=== PATIENT | female | born 1995 | race Caucasian/White ===

== ENCOUNTER 2017-11-22 10:47 | Emergency (ER) | payer OTHER, SELFPAY ==
[2017-11-22 10:53] VITALS: BP 127/66; PULSE 114; RESP 26; TEMP 36.5; O2SAT 100; BMI 29.2
--- NOTE | 2017-11-22 10:56 | ED_ITS ---
HPI - Anxiety General Chief Complaint: Anxiety Stated Complaint: thinks allergic reaction to medicine Time Seen by Provider: 11/22/17 10:48 Source: patient Mode of arrival: ambulatory Limitations: no limitations History of Present Illness HPI narrative: 22-year-old female with a history of anxiety who earlier this week started trazodone for sleep in Celexa for her anxiety prescribed by her primary doctor here for which she thought was a reaction to the medicine/panic attack. Patient states that she has taken the medicine since Saturday. Her last dose of Celexa was 24 hr ago. Her last dose of the trazodone was last night. She states that this morning she woke up was not feeling well. States she threw up. After that her anxiety spike. She states that nausea and abdominal ? issues ?are how her anxiety presents itself. She arrived to the emergency department in a full-blown panic attack. Related Data Home Medications Medication Instructions Recorded Confirmed citalopram 10 mg PO DAILY 11/22/17 11/22/17 trazodone 25 - 50 mg PO BEDTIME PRN 11/22/17 11/22/17 Previous Rx's Medication Instructions Recorded lorazepam [Ativan] 1 mg PO Q8H PRN #10 tab 11/22/17 ondansetron [Zofran ODT] 4 mg PO Q6H PRN #10 tab 11/22/17 Allergies Allergy/AdvReac Type Severity Reaction Status Date / Time No Known Allergies Allergy Uncoded 09/11/17 12:46 Review of Systems Constitutional Denies fatigue and Denies fever(s) Cardiovascular Denies chest pain, Reports rapid heart rate, Denies palpitations and Reports dyspnea Respiratory Reports dyspnea Gastrointestinal Gastrointestinal: Reports nausea and Reports vomiting Integumentary/Breasts Denies lesions and Denies rash Neurologic Denies confusion Psychiatric Reports anxiety, Denies confusion and Reports panic attacks Endocrine Denies fatigue and Denies palpitations Exam Initial Vital Signs Initial Vital Signs: Vital Signs Temperature 97.7 F 11/22/17 10:53 Pulse Rate 114 H 11/22/17 10:53 Respiratory Rate 26 H 11/22/17 10:53 Blood Pressure 127/66 H 11/22/17 10:53 Pulse Oximetry 100 11/22/17 10:53 HENMT Head: normal to inspection, normocephalic and atraumatic Resp Auscultation: clear to auscultation bilaterally Other: Tachypneic on arrival which improved after the Ativan Cardio Rate: tachycardic (Tachycardic upon arrival) Pulses: radial pulses present GI Inspection: non-distended Palpation: soft Skin Lesions: no lesions Rashes: no rashes Neuro General: alert, awake and oriented x3 Psych Appearance: grossly normal and well kempt Other: Anxious, tachypneic, tachycardic. Course Orders Ordered: Discontinued Medications Lorazepam (Ativan) 1 mg PO NOW ONE Stop: 11/22/17 10:56 Last Admin: 11/22/17 11:06 Dose: Lorazepam (Ativan) 1 mg PO NOW ONE Stop: 11/22/17 11:00 Last Admin: 11/22/17 11:00 Dose: 1 mg Vital Signs - 8 hr 11/22/17 10:53 11/22/17 12:01 11/22/17 12:10 Temperature 97.7 F Pulse Rate 114 H 88 96 H Respiratory Rate 26 H 18 Blood Pressure 127/66 H Blood Pressure [Right Arm] 110/50 L 116/72 Pulse Oximetry 100 99 99 11/22/17 12:34 Temperature Pulse Rate 87 Respiratory Rate 16 Blood Pressure Blood Pressure [Right Arm] 105/72 Pulse Oximetry 95 MDM - Anxiety MDM Narrative Medical decision making narrative: Patient arrived to the emergency department with an obvious panic attack. Was given 1 mg of oral Ativan which improved her symptoms somewhat. After spending more time here in the emergency department her symptoms almost completely resolved. While she was improving I did offer more oral Ativan and also nausea medication which she declined. We had a long discussion regarding her medicines. She has already talked with her primary doctor regarding it. She is going to stop the trazodone and skip her Celexa today and start at a half dose again tomorrow. She has a follow-up with her primary doctor in 3 weeks to discuss further treatment. She was given return precautions. Her mother was at bedside. They both expressed understanding and agreement with plan Discharge Plan Departure Patient Disposition: Home, Self-Care Clinical Impression: Acute anxiety Instructions: Anxiety Disorders, Anxiety and Panic Attacks (Alternative Therapy ) Activity Restrictions/Additional Instructions: Recommend that you take your primary care doctor's advice regarding your medicines. Return to the emergency department for any new or worsening symptoms. Keep all scheduled medical appointments. Prescriptions: New lorazepam [Ativan] 1 mg tablet 1 mg PO Q8H PRN (Reason: anxiety) Qty: 10 RF: 0 ondansetron [Zofran ODT] 4 mg tablet,disintegrating 4 mg PO Q6H PRN (Reason: nausea and vomiting) Qty: 10 RF: 0 No Action trazodone 50 mg Tablet 25 - 50 mg PO BEDTIME PRN (Reason: Sleep) RF: 0 citalopram 10 mg Tablet 10 mg PO DAILY RF: 0
[2017-11-22] MEDS: LORazepam 0.5 MG TABLET 1 MG PO (11:00)
--- NOTE | 2017-11-22 11:10 | PC.NURSE ---
Patient comes in tachypneic reporting she started a new medication for anxiety yesterday and today is afraid she may be having an allergic reaction and a panic attack. She reports her throat is sore and feels swollen. Voice is not hoarse, SPO2 is 100%. LANM at bedside assessing patient. Verbal order for 1mg ativan given. I gave her a plastic bag to breathe in to help slow her breathing as she is hyperventilating and stats she cannot slow her breathing.
--- NOTE | 2017-11-22 11:12 | PC.NURSE ---
Lights dimmed in room, mom at bedside. I draped her shoulders in a warm blanket, silenced the monitor, and shut the door to minimize stimulation. I told the mom to inform me if something changes. Patient appears to be calming down.
--- NOTE | 2017-11-22 11:21 | PC.NURSE ---
Patient sitting on edge of bed, focusing on slowing breathing. She was given water per request from [facility]. [facility] reports that there is no throat swelling per his observation.
[2017-11-22 12:01] VITALS: BP 110/50; PULSE 88; O2SAT 99
--- NOTE | 2017-11-22 12:09 | PC.NURSE ---
Patient lying back in bed, breathing has slowed and patient reports she feels a lot better, I'm ready to go. States throat still feels a little sore/tight but overall she feels much better.vital signs stable. MERON aware.
[2017-11-22 12:10] VITALS: BP 116/72; PULSE 96; RESP 18; O2SAT 99
[2017-11-22 12:34] VITALS: BP 105/72; PULSE 87; RESP 16; O2SAT 95
[2017-11-22 12:51] VITALS: BP 105/72; PULSE 87; RESP 16; O2SAT 98
== END 2017-11-22 12:52 | disposition home or self-care (01) ==
PROVIDERS: Emergency Provider Emergency Medicine
DX: F41.9 Anxiety disorder, unspecified (principal)
CPT/HCPCS: 99283

== ENCOUNTER 2019-02-13 18:10 | Inpatient (IN) | payer OTHER, SELFPAY ==
[2019-02-13 18:42] VITALS: BP 140/84; PULSE 81; RESP 16; TEMP 38.9; O2SAT 100
[2019-02-13 18:56] VITALS: BP 140/84; PULSE 81; RESP 16; TEMP 38.9; O2SAT 100; BMI 29.2
[2019-02-13 19:17] LABS: Add Manual Diff / Slide Review NO; Basophils Absolute Auto 100 /uL (0-100); Basophils Percent Auto 0.4 % (0-2); Eosinophils Absolute Auto 0 /uL (0-450); Hematocrit 45.3 % (36-46); Hemoglobin 15.8 g/dL (12.0-16.0); Lymphocytes Absolute Auto 1800 /uL (1100-4500); Lymphocytes Percent Auto 13.5 % (25-40); Mean Corpuscular HGB Conc 34.8 % (30-36); Mean Corpuscular Hemoglobin 31.9 PG (26-34); Mean Corpuscular Volume 91.8 fL (80-100); Monocytes Absolute Auto 800 /uL (0-900); Neutrophils Absolute Auto 10700 /uL (1500-7000); Neutrophils Percent Auto 80.1 % (50-75); Platelet Count 263 X10^3/uL (150-400); Red Blood Cell Count 4.94 X10^6/uL (4.0-5.2); Red Cell Distribution Width 12.6 % (11.6-14.8); White Blood Cell Count 13.4 X10^3/uL (4.5-11.0)
[2019-02-13 19:21] LABS: INR 1.1 (0.9-1.3); Prothrombin Time 12.6 SECONDS (10.1-12.7)
[2019-02-13 19:24] LABS: PTT Partial Thromboplastin Tim 34 SECONDS (26.4-36.2)
[2019-02-13 19:26] LABS: Alanine Aminotransferase 53 IU/L (9-52); Albumin Globulin Ratio 1.3 (1.0-2.8); Alkaline Phosphatase 87 U/L (38-126); Aspartate Aminotransferase 43 IU/L (14-36); BUN Creatinine Ratio 11.4 (6-22); Bilirubin Total 0.6 mg/dL (0.2-1.3); Blood Urea Nitrogen 8 mg/dL (7-17); Calcium 10.1 mg/dL (8.4-10.2); Carbon Dioxide 19 mmol/L (22-32); Chloride 103 mmol/L (98-107); Estimated Glomerular Filt Rate > 60.0 mL/min (>60); Globulin 3.9 g/dL (1.7-4.1); Glucose 158 mg/dL (70-100); HEMOLYSIS < 15 (0-50); Lipase 47 U/L (23-300); Potassium 3.6 mmol/L (3.4-5.1); Sodium 140 mmol/L (137-145); Total Protein 8.9 g/dL (6.3-8.2)
[2019-02-13] MEDS: PROCHLORPERAZINE 10 MG/2 ML VIAL IV (19:27)
[2019-02-13] MEDS: diphenhydrAMINE 50 MG/ML VIAL 25 MG IV (19:27)
[2019-02-13] MEDS: KETOROLAC 60 MG/2 ML VIAL 30 MG IV (19:27)
--- NOTE | 2019-02-13 19:27 | ED_ITS ---
HPI - Nausea/Vomiting/Diarrhea General Chief complaint: Nausea/Vomiting/Diarrhea Stated complaint: DIZZY BAD HEADACHE THROWING UP NON STOP NEEDS ANTI Time Seen by Provider: 02/13/19 19:01 Source: patient Mode of arrival: ambulatory Limitations: no limitations History of Present Illness HPI Narrative: 23-year-old female here for evaluation of nausea and vomiting abdominal pain and headache and fever. Patient was seen today at an outside clinic and was diagnosed with Trichomonas. Was given a prescription for Flagyl but has been able to take any these medications. She states that they did not do a pelvic exam. She arrives the Emergency Department today feeling very ill with the above symptoms. No neck pain. Related Data Home Medications Medication Instructions Recorded Confirmed citalopram 10 mg PO DAILY 11/22/17 11/22/17 trazodone 25 - 50 mg PO BEDTIME PRN 11/22/17 11/22/17 Previous Rx's Medication Instructions Recorded lorazepam [Ativan] 1 mg PO Q8H PRN #10 tab 11/22/17 ondansetron [Zofran ODT] 4 mg PO Q6H PRN #10 tab 11/22/17 Allergies Allergy/AdvReac Type Severity Reaction Status Date / Time No Known Allergies Allergy Uncoded 09/11/17 12:46 Review of Systems Constitutional Constitutional: Reports body ache(s), Reports chills, Reports fever(s), Reports lethargy and Reports malaise Cardiovascular Cardiovascular: Denies chest pain, Denies palpitations and Denies dyspnea Respiratory Respiratory: Denies dyspnea Gastrointestinal Gastrointestinal: Reports abdominal pain, Reports nausea and Reports vomiting Genitourinary Genitourinary: Reports genital pruritis, Denies dysuria and Reports pelvic pain Musculoskeletal Musculoskeletal: Denies myalgias and Denies arthralgias Integumentary/Breasts Skin/Breast: Denies rash Neurologic Neurologic: Denies behavioral changes Psychiatric Psychiatric: Denies behavioral changes Endocrine Endocrine: Denies palpitations Hematologic/Lymphatic Hematologic/Lymphatic: Denies easy bleeding and Denies easy bruising [facility] Medical History Patient denies medical problems (Acute) Social History household members: family Smoking Status: Former smoker Social History household members: family Smoking Status: Former smoker Exam Initial Vital Signs Initial Vital Signs: Vital Signs Temperature 102.1 F H 02/13/19 18:42 Pulse Rate 81 02/13/19 18:42 Respiratory Rate 16 02/13/19 18:42 Blood Pressure 140/84 02/13/19 18:42 Pulse Oximetry 100 02/13/19 18:42 Const General: well developed and ill appearing Orientation: alert, awake and oriented x3 HENMT Head: normal to inspection and normocephalic Resp Effort & Inspection: tachypneic Auscultation: clear to auscultation bilaterally Cardio Rate: tachycardic Rhythm: regular rhythm GI Inspection: non-distended Palpation: soft and tender (Bilateral lower abdomen) Speculum Exam - Cervix: cervical tenderness Bimanual Exam- Vagina & Uterus: cervical tenderness and cervical motion tenderness Back/Spine/Pelvis Back: No CVA tenderness Skin Lesions: no lesions Rashes: no rashes Neuro General: alert, awake and oriented x3 Cognition: normal cognition Speech: speech normal Extrem General: normal to inspection, capillary refill normal and No edema Psych Appearance: grossly normal and well kempt Scores GCS Juan coma scale eye opening: Spontaneous Juan coma scale verbal response: Orientated Juan coma scale motor response: Obey commands Juan coma scale total score: 15 Course Orders Ordered: ED Orders 02/13/19 18:58 EKG-12 Lead Stat 02/13/19 19:00 Complete Blood Count AUTO DIFF Stat Comprehensive Metabolic Panel Stat Lipase Stat Partial Thromboplastin Time Stat Prothrombin Time INR Stat 02/13/19 19:08 Test Serum,Qual Stat 02/13/19 19:33 Blood Culture Stat Lactate (Lactic Acid) Stat Procalcitonin Stat 02/13/19 20:10 Influenza A and B by PCR Rapid Stat 02/13/19 21:28 CT abdomen pelvis w con Stat 02/14/19 00:04 Consult to Physician Routine 02/14/19 00:05 Urine Chlamydia Gonorrhea PCR Stat Sodium Chloride (Normal Saline 0.9%) 1,000 mls @ 125 mls/hr IV CONT ALETHA Morphine Sulfate (Morphine) 2 mg IV Q4HR PRN PRN Reason: Pain, Mild (1-3) Ondansetron HCl (Zofran) 4 mg IV Q4HR PRN PRN Reason: Nausea And Vomiting Discontinued Medications Diphenhydramine HCl (Benadryl) 25 mg IV NOW ONE Stop: 02/13/19 19:02 Last Admin: 02/13/19 19:27 Dose: 25 mg Documented by: GRISELDA Sodium Chloride (Normal Saline 0.9%) 1,000 mls @ 1,000 mls/hr IV BOLUS ONE Stop: 02/13/19 20:26 Last Infusion: 02/13/19 22:14 Dose: 0 mls/hr Documented by: Admin: 02/13/19 19:28 Dose: 1,000 mls/hr Documented by: GRISELDA Doxycycline Hyclate 100 mg/ (Sodium Chloride) 100 mls @ 100 mls/hr IV NOW ONE Stop: 02/13/19 21:54 Last Infusion: 02/14/19 01:03 Dose: 0 mls/hr Documented by: Admin: 02/13/19 23:34 Dose: 100 mls/hr Documented by: GRISELDA Cefotetan Disodium/Dextrose (Cefotan) 2 gm in 50 mls @ 100 mls/hr IV NOW ONE Stop: 02/13/19 22:22 Last Infusion: 02/13/19 23:24 Dose: 0 mls/hr Documented by: Admin: 02/13/19 22:31 Dose: 100 mls/hr Documented by: DENNIS Metronidazole (Flagyl) 500 mg in 100 mls @ 100 mls/hr IV NOW ONE Stop: 02/13/19 22:53 Last Infusion: 02/14/19 00:19 Dose: 0 mls/hr Documented by: Admin: 02/13/19 22:31 Dose: 100 mls/hr Documented by: DENNIS Sodium Chloride (Normal Saline 0.9%) 1,000 mls @ 1,000 mls/hr IV BOLUS ONE Stop: 02/13/19 23:58 Last Infusion: 02/14/19 01:03 Dose: 0 mls/hr Documented by: Admin: 02/13/19 23:34 Dose: 1,000 mls/hr Documented by: GRISELDA Ketorolac Tromethamine (Toradol) 30 mg IV NOW ONE Stop: 02/13/19 19:02 Last Admin: 02/13/19 19:27 Dose: 30 mg Documented by: GRISELDA Ondansetron HCl (Zofran) 4 mg IV NOW ONE Stop: 02/13/19 20:53 Last Admin: 02/13/19 21:30 Dose: 4 mg Documented by: DENNIS Prochlorperazine (Compazine) 10 mg IV NOW ONE Stop: 02/13/19 19:02 Last Admin: 02/13/19 19:27 Dose: 10 mg Documented by: GRISELDA Vital Signs Vital signs: Vital Signs - 8 hr 02/13/19 18:42 02/13/19 18:56 02/13/19 20:53 Temperature 102.1 F H 102.1 F H 98.9 F Pulse Rate 81 81 Respiratory Rate 16 16 Blood Pressure 140/84 140/84 Pulse Oximetry 100 100 MDM - Nausea/Vomiting/Diarrhea Lab Data Attestation: I reviewed the patient's lab results. Result diagrams: 02/13/19 19:00 02/13/19 19:00 Labs: Lab Results 02/13/19 02/13/19 02/13/19 Range/Units 19:00 19:00 19:00 WBC 13.4 H (4.5-11.0) X10^3/uL RBC 4.94 (4.0-5.2) X10^6/uL Hgb 15.8 (12.0-16.0) g/dL Hct 45.3 (36-46) % MCV 91.8 (80-100) fL MCH 31.9 (26-34) PG MCHC 34.8 (30-36) % RDW 12.6 (11.6-14.8) % Plt Count 263 (150-400) X10^3/uL Neut % (Auto) 80.1 H (50-75) % Lymph % (Auto) 13.5 L (25-40) % [place] % (Auto) 6.0 (3-14) % Eos % (Auto) 0.0 L (2-4) % Baso % (Auto) 0.4 (0-2) % Neut # (Auto) 34899 H (8719-0101) /uL Lymph # (Auto) 1800 (3083-8580) /uL [place] # (Auto) 800 (0-900) /uL Eos # (Auto) 0 (0-450) /uL Baso # (Auto) 100 (0-100) /uL PT 12.6 (10.1-12.7) SECONDS INR 1.1 (0.9-1.3) APTT 34 (26.4-36.2) SECONDS Sodium 140 (137-145) mmol/L Potassium 3.6 (3.4-5.1) mmol/L Chloride 103 (98-107) mmol/L Carbon Dioxide 19 L (22-32) mmol/L BUN 8 (7-17) mg/dL Creatinine 0.70 (0.52-1.04) mg/dL Estimated GFR > 60.0 (>60) mL/min BUN/Creatinine Ratio 11.4 (6-22) Glucose 158 H (70-100) mg/dL Lactate (0.7-2.1) mmol/L Calcium 10.1 (8.4-10.2) mg/dL Total Bilirubin 0.6 (0.2-1.3) mg/dL AST 43 H (14-36) IU/L ALT 53 H (9-52) IU/L Alkaline Phosphatase 87 (38-126) U/L Total Protein 8.9 H (6.3-8.2) g/dL Albumin 5.0 (3.5-5.0) g/dL Globulin 3.9 (1.7-4.1) g/dL Albumin/Globulin Ratio 1.3 (1.0-2.8) Lipase 47 (23-300) U/L Procalcitonin (<0.5) ng/mL Serum , Qual (Negative) Urine Color Urine Appearance Urine pH (4.5-8.0) Ur Specific [place] (1.000-1.035) Urine Protein (Negative) Urine Glucose (UA) (Negative) g/dL Urine Ketones (NEGATIVE) Urine Occult Blood (Negative) Urine Nitrate (Negative) Urine Bilirubin (NEGATIVE) Urine Urobilinogen (0.2) E.U./dL Ur Leukocyte Esterase (NEGATIVE) Urine RBC (0-5/HPF) Urine WBC (0-5/HPF) Urine Bacteria (None) Ur Culture Indicated? Micro UA Comment Influenza A & B (PCR) (Negative) 02/13/19 02/13/19 02/13/19 Range/Units 19:08 19:33 19:33 WBC (4.5-11.0) X10^3/uL RBC (4.0-5.2) X10^6/uL Hgb (12.0-16.0) g/dL Hct (36-46) % MCV (80-100) fL MCH (26-34) PG MCHC (30-36) % RDW (11.6-14.8) % Plt Count (150-400) X10^3/uL Neut % (Auto) (50-75) % Lymph % (Auto) (25-40) % [place] % (Auto) (3-14) % Eos % (Auto) (2-4) % Baso % (Auto) (0-2) % Neut # (Auto) (1183-6215) /uL Lymph # (Auto) (3693-2261) /uL [place] # (Auto) (0-900) /uL Eos # (Auto) (0-450) /uL Baso # (Auto) (0-100) /uL PT (10.1-12.7) SECONDS INR (0.9-1.3) APTT (26.4-36.2) SECONDS Sodium (137-145) mmol/L Potassium (3.4-5.1) mmol/L Chloride (98-107) mmol/L Carbon Dioxide (22-32) mmol/L BUN (7-17) mg/dL Creatinine (0.52-1.04) mg/dL Estimated GFR (>60) mL/min BUN/Creatinine Ratio (6-22) Glucose (70-100) mg/dL Lactate 2.4 H (0.7-2.1) mmol/L Calcium (8.4-10.2) mg/dL Total Bilirubin (0.2-1.3) mg/dL AST (14-36) IU/L ALT (9-52) IU/L Alkaline Phosphatase (38-126) U/L Total Protein (6.3-8.2) g/dL Albumin (3.5-5.0) g/dL Globulin (1.7-4.1) g/dL Albumin/Globulin Ratio (1.0-2.8) Lipase (23-300) U/L Procalcitonin < 0.05 (<0.5) ng/mL Serum , Qual Negative (Negative) Urine Color Urine Appearance Urine pH (4.5-8.0) Ur Specific [place] (1.000-1.035) Urine Protein (Negative) Urine Glucose (UA) (Negative) g/dL Urine Ketones (NEGATIVE) Urine Occult Blood (Negative) Urine Nitrate (Negative) Urine Bilirubin (NEGATIVE) Urine Urobilinogen (0.2) E.U./dL Ur Leukocyte Esterase (NEGATIVE) Urine RBC (0-5/HPF) Urine WBC (0-5/HPF) Urine Bacteria (None) Ur Culture Indicated? Micro UA Comment Influenza A & B (PCR) (Negative) 02/13/19 02/13/19 02/14/19 Range/Units 20:10 22:30 00:05 WBC (4.5-11.0) X10^3/uL RBC (4.0-5.2) X10^6/uL Hgb (12.0-16.0) g/dL Hct (36-46) % MCV (80-100) fL MCH (26-34) PG MCHC (30-36) % RDW (11.6-14.8) % Plt Count (150-400) X10^3/uL Neut % (Auto) (50-75) % Lymph % (Auto) (25-40) % [place] % (Auto) (3-14) % Eos % (Auto) (2-4) % Baso % (Auto) (0-2) % Neut # (Auto) (0165-2140) /uL Lymph # (Auto) (7370-6039) /uL [place] # (Auto) (0-900) /uL Eos # (Auto) (0-450) /uL Baso # (Auto) (0-100) /uL PT (10.1-12.7) SECONDS INR (0.9-1.3) APTT (26.4-36.2) SECONDS Sodium (137-145) mmol/L Potassium (3.4-5.1) mmol/L Chloride (98-107) mmol/L Carbon Dioxide (22-32) mmol/L BUN (7-17) mg/dL Creatinine (0.52-1.04) mg/dL Estimated GFR (>60) mL/min BUN/Creatinine Ratio (6-22) Glucose (70-100) mg/dL Lactate 1.1 (0.7-2.1) mmol/L Calcium (8.4-10.2) mg/dL Total Bilirubin (0.2-1.3) mg/dL AST (14-36) IU/L ALT (9-52) IU/L Alkaline Phosphatase (38-126) U/L Total Protein (6.3-8.2) g/dL Albumin (3.5-5.0) g/dL Globulin (1.7-4.1) g/dL Albumin/Globulin Ratio (1.0-2.8) Lipase (23-300) U/L Procalcitonin (<0.5) ng/mL Serum , Qual (Negative) Urine Color Yellow Urine Appearance Clear Urine pH 6.5 (4.5-8.0) Ur Specific [place] <=1.005 (1.000-1.035) Urine Protein Trace H (Negative) Urine Glucose (UA) Negative (Negative) g/dL Urine Ketones 2+ H (NEGATIVE) Urine Occult Blood Negative (Negative) Urine Nitrate Negative (Negative) Urine Bilirubin Negative (NEGATIVE) Urine Urobilinogen 0.2 (0.2) E.U./dL Ur Leukocyte Esterase Negative (NEGATIVE) Urine RBC None seen (0-5/HPF) Urine WBC None seen (0-5/HPF) Urine Bacteria None seen (None) Ur Culture Indicated? Cult not indicated Micro UA Comment Microscopic normal Influenza A & B (PCR) Negative (Negative) Imaging Data CT scan - abdomen: Radiologist's impression: Preliminary read Indeterminate calcifications bilaterally in the UVJ region. No obstructive changes. Thick wall: Is mostly decompressed with no inflammatory changes ECG Data Attestation: I personally reviewed and interpreted this ECG as follows: Prior ECG tracings: not available for review Interpretation: Sinus rhythm Ventricular rate is 68 Normal axis Normal QRS Normal QTC No ST T wave changes MDM Narrative Medical decision making narrative: Upon arrival patient looked very ill. Was diaphoretic. Was retching. Was febrile. Stated that her headache at the time of my initial evaluation was much better than what it was earlier in the day. I do have a low suspicion for meningitis given her physical exam. She does have lower abdominal pain. She was diagnosed with Trichomonas earlier today but has been unable to take any of the Flagyl because of the nausea and vomiting. She was given fluids. Her initial lactate was 2.4 which then improved to 1.1 after the fluids. Her urine shows no signs of a urinary tract infection. Does have an elevated white blood cell count. On her pelvic exam she did have cervical motion tenderness and bilateral adnexal tenderness. The CT scan shows no signs of tubo-ovarian abscess or appendicitis. Given her diagnosis of Trichomonas earlier today and her cervical motion tenderness diff concern for PID. She was given IV antibiotics for this. She did improve after treatment here in the ER. Her fever improved. I do feel given her age and the severity of her symptoms upon arrival that IV antibiotics and treatment for PID is warranted. Her urine GC and chlamydia was obtained however was pending at the time of admission. I did discuss the case with Dr. Mello who is on-call for the patient's primary doctor who agreed to admit the patient. Discussed the admission with the patient and her mother was at bedside. They expressed understanding and agreement with plan. Discharge Plan Departure Patient Disposition: Admitted As Inpatient Clinical Impression: Acute pelvic inflammatory disease (PID) Discharge Date/Time: 02/14/19 01:21 Admit Date/Time: 02/14/19 00:21 Admit Provider: Paul Mello
[2019-02-13] MEDS: SODIUM CHLORIDE 0.9% 1,000 ML 1000 ML IV ×2 (19:28→23:34)
[2019-02-13 20:14] LABS: Lactate (Lactic Acid) 2.4 mmol/L (0.7-2.1)
[2019-02-13 20:33] LABS: Influenza A and B by PCR Rapid Negative (Negative)
[2019-02-13 20:34] LABS: Procalcitonin < 0.05 ng/mL (<0.5)
[2019-02-13 20:53] VITALS: TEMP 37.2
--- NOTE | 2019-02-13 21:28 | DI.CT.S_ITS ---
PROCEDURE: CT ABDOMEN PELVIS W CON INDICATIONS: Generalized abdominal pain TECHNIQUE: After the administration of intravenous contrast, 5 mm thick sections acquired from the diaphragm to the symphysis. 5 mm coronal and sagittal reformats were acquired. For radiation dose reduction, the following was used: automated exposure control, adjustment of mA and/or kV according to patient size. COMPARISON: None. FINDINGS: Image quality: Excellent. ABDOMEN: Lung bases: Lung bases are clear. Heart size is normal. Solid organs: Liver is normal in size and enhancement. Gallbladder is unremarkable. Biliary system is non dilated. Pancreas enhances normally. Spleen is normal in size and enhancement. No adrenal nodules. Kidneys demonstrate normal size and enhancement, without hydronephrosis. Peritoneum and bowel: Minimal circumferential colonic wall thickening throughout the visualized colon without associated inflammatory changes. Findings are likely related to decompressed bowel. Remainder of the visualized bowel loops demonstrate normal wall thickness and caliber. No free fluid or air. Nodes and vessels: No retroperitoneal or mesenteric adenopathy by size criteria. Aorta and inferior vena cava are normal in size. Miscellaneous: No ventral hernias. PELVIS: Genitourinary: Bladder wall thickness is normal. There are calcifications at the bilateral ureterovesicular junctions likely related to previous Deflux injections. Visualized ureters are normal in course and caliber proximally. An intrauterine device is identified. Miscellaneous: No inguinal hernias or adenopathy. Bones: No suspicious bony lesions. No vertebral body compression fractures. IMPRESSION: 1. CT abdomen and pelvis without acute abnormalities. 2. Focal calcifications at the bilateral ureterovesicular junctions without associated obstructive uropathy. Findings are likely related to previous Deflux injections at the UVJ. Recommend correlation with previous medical/surgical history. Dictated by: Mike Carr M.D. on 02/14/2019 at 6:50 Approved by: Mike Carr M.D. on 02/14/2019 at 6:59
[2019-02-13] MEDS: ONDANSETRON 4 MG/2 ML INJ IV (21:30)
[2019-02-13 21:48] LABS: Pregnancy Test Serum,Qual Negative (Negative)
[2019-02-13 21:57] LABS: Reflexed Lactate in 2 Hours Y
[2019-02-13] MEDS: metroNIDAZOLE 500 MG/100 ML PIGGYBACK 100 MG IV (22:31)
[2019-02-13] MEDS: CEFOTETAN 2 GM/50 ML PIGGYBACK IV (22:31)
[2019-02-13 22:44] LABS: Lactate 2HR (Lactic Acid Rflx) 1.1 mmol/L (0.7-2.1)
[2019-02-13] MEDS: DOXYCYCLINE 100 MG in SODIUM CHLORIDE 0.9% 100 ML IV (23:34)
[2019-02-14] VITALS (10 sets, daily range): BP systolic 111–136; BP diastolic 51–77; PULSE 66–95; RESP 16–18; TEMP 36.3–37.6; O2SAT 96–100; BMI 29.2
[2019-02-14 00:45] LABS: Bacteria Urine None Seen; RBC Urine None Seen (0-5/HPF); WBC Urine None Seen (0-5/HPF)
[2019-02-14 01:08] LABS: Appearance Urine UA CLEAR; Bilirubin Urine UA NEGATIVE (NEGATIVE); Color Urine UA YELLOW; Glucose Urine UA NEGATIVE (Negative); Ketones Urine UA 2+ (NEGATIVE); Leukocyte Esterase Urine UA NEGATIVE (NEGATIVE); Nitrite Urine UA NEGATIVE (Negative); Occult Blood Urine UA NEGATIVE (Negative); Protein Urine UA TRACE (Negative); Specific Gravity Urine UA <=1.005 (1.000-1.035); Urobilinogen Urine UA 0.2 E.U./dL (0.2)
[2019-02-14 01:17] LABS: pH Urine UA 6.5 (4.5-8.0)
[2019-02-14 01:30] LABS: Culture Indicated Urine Cult Not Indicated; Urine Comments Microscopic Normal
[2019-02-14] MEDS: SODIUM CHLORIDE 0.9% 1,000 ML 125 ML IV ×3 (01:48→21:13)
[2019-02-14 02:13] LABS: Urine N gonorrhoeae NOT DETECTED
[2019-02-14 02:17] LABS: Urine Chlamydia NOT DETECTED
[2019-02-14] MEDS: ONDANSETRON 4 MG/2 ML INJ IV ×3 (03:00→18:01)
[2019-02-14] MEDS: MORPHINE 2 MG/ML INJ IV ×3 (03:01→21:08)
[2019-02-14 03:31] LABS: Pregnancy Test Urine Negative (Negative)
[2019-02-14] MEDS: KETOROLAC 30 MG/ML VIAL IV ×2 (09:30→16:36)
--- NOTE | 2019-02-14 10:02 | PC.NURSE ---
Addendum entered by Regina Wilburn R.N. 02/14/19 13:07: GI/ANXIETY - pt is alert, visiting with family at bedside, taking a few small sips clear liq, continues with some underlying nausea, given 1mg po ativan. Addendum entered by Regina Wilburn R.N. 02/14/19 10:35: GI - reported continued underlying nausea, given 4mg iv zofran, declines cool cloth. Original Note: AM NOTE - pt is alert, states abd tender, some underlying nausea at times, declines anti-emetic this am and trying sips juice, complaint headache discomfort overnight and present this am, not relieved by earlier morphine, contacted and new order rec'd, given 30mg iv toradol as pt states it was more effective when given in er.
--- NOTE | 2019-02-14 11:19 | P.HP_ITS ---
History of Present Illness History of Present Illness Date Patient Seen: 02/14/19 Time Patient Seen: 10:13 Chief complaint: DIZZY BAD HEADACHE THROWING UP NON STOP Narrative: Patient is a 23-year-old female presenting with severe diffuse body pain abdominal pain nausea vomiting fevers and chills. She had been seen in clinic earlier and diagnosed with Trichomonas and given a script for Flagyl but was not able to take that and will got progressively worse through the day and came into the ER last evening found to have fever elevated white count left shift S severe pain on pelvic exam with significant suggestion of PID. The abdominal CT scan obtained which showed no ovarian cysts masses tumors appendicitis or other internal abdomen or pelvic abnormalities. Patient also had a headache through this and that kind of continues does respond to Toradol. She has been requiring more morphine and Zofran intermittently throughout this because of ongoing nausea. Through evaluation in the ER felt that she did not have anything to suggest meningitis her symptoms were much more severe in the lower abdomen pelvis. No neurologic change focal findings headache is frontal in nature. Patient has past medical history of anxiety and depression with some sleep dis ruption she is on citalopram for that has in the past used lorazepam. For sleep at night uses trazodone Patient History Medical History Patient denies medical problems (Acute) Social History household members: family Smoking Status: Former smoker Family & Social History Social History: household members family Prior Living Arrangements House Safety & Behavioral: Feels Safe in Current Yes Environment Been Physically Hurt or No Threatened By a Person Suicidal Ideation Description None Suicide Plan Description No Plan Tobacco & Substance use: Smoking Status Former smoker alcohol intake frequency 0-2 drinks per day Substance Use Type does not use Meds Home Medications and Allergies Home Medications Medication Instructions Recorded Confirmed Type citalopram 10 mg PO DAILY 11/22/17 02/14/19 History lorazepam [Ativan] 1 mg PO Q8H PRN #10 tab 11/22/17 02/14/19 Rx ondansetron [Zofran ODT] 4 mg PO Q6H PRN #10 tab 11/22/17 02/14/19 Rx trazodone 25 - 50 mg PO BEDTIME PRN 11/22/17 02/14/19 History Allergies Allergy/AdvReac Type Severity Reaction Status Date / Time No Known Allergies Allergy Uncoded 09/11/17 12:46 Review of Systems Review of Systems Narrative: Patient with fever chills sweats headache nausea abdominal pain also has diffuse aches all over with negative influenza evaluation in emergency room No change in vision or focal neurologic abnormality No swollen lymph nodes or masses No significant cough or shortness of breath No abnormality cardiovascularly with chest pain significant shortness of breath swelling. No palpitations Abdomen diffusely tender more mild in the upper quadrants significantly worse in the lower quadrants bilaterally. Have deferred pelvic exam at this point because pelvic done in the emergency room was her if he clear painful and consistent with PID. CT scan very showed no masses appendicitis abscess or other findings. No neurologic changes or orthopedic changes Skin unremarkable patient complains of diaphoresis. Does have fairly extensive tattooing Exam Vital Signs (past 8 hours): - 02/14/19 05:39 02/14/19 08:52 Temperature 99.5 F 98.1 F Pulse Rate 95 H 81 Respiratory Rate 18 16 Blood Pressure 111/51 L 132/63 Pulse Oximetry 98 97 Oxygen Delivery Method Room Air Oxygen Flow Rate 0 Narrative Exam Narrative: Patient lying in bed diaphoretic quite uncomfortable and anxious. Neurologically intact without abnormality and cognitive intact PERRLA EOMs intact Neck without adenopathy Lungs clear to auscultation and percussion Cardiac shows mild tachycardia but no murmur no S3 no significant edema Abdomen diffusely tender with moderate pain in upper quadrants bilaterally but severe pain in lower quadrants bilaterally. Pelvic exam deferred because it was so strikingly painful for patient in the evening exam in the emergency room consistent with PID. Have reviewed abdominal and pelvic CT scan which shows no appendicitis abscess mass tumor ovarian cysts. Skin notable for tattoos without any complications or signs. Neuro intact symmetrical patient alert and cognitively intact everything move spontaneously with 5/5 strength and sensory intact No dependent edema Objective Labs Result Diagrams: 02/13/19 19:00 02/13/19 19:00 Labs: Laboratory Results - last 24 hr 02/13/19 02/13/19 02/13/19 19:00 19:00 19:00 WBC 13.4 H RBC 4.94 Hgb 15.8 Hct 45.3 MCV 91.8 MCH 31.9 MCHC 34.8 RDW 12.6 Plt Count 263 Neut % (Auto) 80.1 H Lymph % (Auto) 13.5 L [place] % (Auto) 6.0 Eos % (Auto) 0.0 L Baso % (Auto) 0.4 Neut # (Auto) 70940 H Lymph # (Auto) 1800 [place] # (Auto) 800 Eos # (Auto) 0 Baso # (Auto) 100 PT 12.6 INR 1.1 APTT 34 Sodium 140 Potassium 3.6 Chloride 103 Carbon Dioxide 19 L BUN 8 Creatinine 0.70 Estimated GFR > 60.0 BUN/Creatinine Ratio 11.4 Glucose 158 H Lactate Calcium 10.1 Total Bilirubin 0.6 AST 43 H ALT 53 H Alkaline Phosphatase 87 Total Protein 8.9 H Albumin 5.0 Globulin 3.9 Albumin/Globulin Ratio 1.3 Lipase 47 Procalcitonin Serum , Qual Urine Color Urine Appearance Urine pH Ur Specific [place] Urine Protein Urine Glucose (UA) Urine Ketones Urine Occult Blood Urine Nitrate Urine Bilirubin Urine Urobilinogen Ur Leukocyte Esterase Urine RBC Urine WBC Urine Bacteria Ur Culture Indicated? Micro UA Comment Urine Test Ur Chlamydia DNA (PCR) Influenza A & B (PCR) N gonorrhoeae DNA (PCR) 02/13/19 02/13/19 02/13/19 19:08 19:33 19:33 WBC RBC Hgb Hct MCV MCH MCHC RDW Plt Count Neut % (Auto) Lymph % (Auto) [place] % (Auto) Eos % (Auto) Baso % (Auto) Neut # (Auto) Lymph # (Auto) [place] # (Auto) Eos # (Auto) Baso # (Auto) PT INR APTT Sodium Potassium Chloride Carbon Dioxide BUN Creatinine Estimated GFR BUN/Creatinine Ratio Glucose Lactate 2.4 H Calcium Total Bilirubin AST ALT Alkaline Phosphatase Total Protein Albumin Globulin Albumin/Globulin Ratio Lipase Procalcitonin < 0.05 Serum , Qual Negative Urine Color Urine Appearance Urine pH Ur Specific [place] Urine Protein Urine Glucose (UA) Urine Ketones Urine Occult Blood Urine Nitrate Urine Bilirubin Urine Urobilinogen Ur Leukocyte Esterase Urine RBC Urine WBC Urine Bacteria Ur Culture Indicated? Micro UA Comment Urine Test Ur Chlamydia DNA (PCR) Influenza A & B (PCR) N gonorrhoeae DNA (PCR) 02/13/19 02/13/19 02/14/19 20:10 22:30 00:05 WBC RBC Hgb Hct MCV MCH MCHC RDW Plt Count Neut % (Auto) Lymph % (Auto) [place] % (Auto) Eos % (Auto) Baso % (Auto) Neut # (Auto) Lymph # (Auto) [place] # (Auto) Eos # (Auto) Baso # (Auto) PT INR APTT Sodium Potassium Chloride Carbon Dioxide BUN Creatinine Estimated GFR BUN/Creatinine Ratio Glucose Lactate 1.1 Calcium Total Bilirubin AST ALT Alkaline Phosphatase Total Protein Albumin Globulin Albumin/Globulin Ratio Lipase Procalcitonin Serum , Qual Urine Color Urine Appearance Urine pH Ur Specific [place] Urine Protein Urine Glucose (UA) Urine Ketones Urine Occult Blood Urine Nitrate Urine Bilirubin Urine Urobilinogen Ur Leukocyte Esterase Urine RBC Urine WBC Urine Bacteria Ur Culture Indicated? Micro UA Comment Urine Test Ur Chlamydia DNA (PCR) Not detected Influenza A & B (PCR) Negative N gonorrhoeae DNA (PCR) Not detected 02/14/19 02/14/19 00:05 00:05 WBC RBC Hgb Hct MCV MCH MCHC RDW Plt Count Neut % (Auto) Lymph % (Auto) [place] % (Auto) Eos % (Auto) Baso % (Auto) Neut # (Auto) Lymph # (Auto) [place] # (Auto) Eos # (Auto) Baso # (Auto) PT INR APTT Sodium Potassium Chloride Carbon Dioxide BUN Creatinine Estimated GFR BUN/Creatinine Ratio Glucose Lactate Calcium Total Bilirubin AST ALT Alkaline Phosphatase Total Protein Albumin Globulin Albumin/Globulin Ratio Lipase Procalcitonin Serum , Qual Urine Color Yellow Urine Appearance Clear Urine pH 6.5 Ur Specific [place] <=1.005 Urine Protein Trace H Urine Glucose (UA) Negative Urine Ketones 2+ H Urine Occult Blood Negative Urine Nitrate Negative Urine Bilirubin Negative Urine Urobilinogen 0.2 Ur Leukocyte Esterase Negative Urine RBC None seen Urine WBC None seen Urine Bacteria None seen Ur Culture Indicated? Cult not indicated Micro UA Comment Microscopic normal Urine Test Negative Ur Chlamydia DNA (PCR) Influenza A & B (PCR) N gonorrhoeae DNA (PCR) Assessment & Plan Assessment & Plan narrative: Assessment 1. PID patient with severe pelvic cervical tenderness with exam and with severe abdominal pain centered in the lower mid abdomen CC seems most consistent with PID culture so far negative. CT imaging shows no growth mass abscess appendicitis or ovarian rupturing. Will have patient be inpatient because of the severity of her symptoms she [place] [id number] with over 80% neutrophils. Excluded and patient's having influenza. Will continue with IV antibiotics for PID plus plus treatment for Trichomonas Assessment 2. Headache a sickly and sinus position. No neurologic issues no stiff neck. Suspect that this is from the febrile infectious process that she systemically battling. Patient did have elevated lactate so may have been working on early septic situation. Will continue to treat headache with MS Tylenol Zofran and intermittent Toradol. Assessment 3. Anxiety and. Patient is chronically on citalopram usually stable but is anxious at this point I think because she feels so bad. Will continue her citalopram have ordered up lorazepam which she does not routinely use but will have that available for her for anxiety while she is here. Assessment 4. Elevated liver enzymes. Again no jaundice or suggestion of gallbladder disease or liver abnormality on CT scan suspect that this is from the acute infectious toxicity that her system is facing. Will recheck those labs and monitor will continue with her antibiotic treatment Assessment 5 nausea and vomiting. Patient has been diaphoretic really nauseous vomiting not able to take things orally. Suspect again this is just a reflection of systemic illness and not focal gastric abnormality no sign on evaluation imaging bowel obstruction gallbladder disease due to ovarian abscess or appendicitis. Time Spent With Patient Time with patient: Greater than 35 minutes Quality VTE Deep Vein Thrombosis/Pulmonary Embolism Present on Admission: No
[2019-02-14] MEDS: CEFOTETAN 1 GM/50 ML PIGGYBACK IV ×2 (11:59→23:24)
[2019-02-14] MEDS: ENOXAPARIN 40 MG/0.4 ML SYRINGE SUBCUT (11:59)
[2019-02-14 12:04] LABS: Add Manual Diff / Slide Review NO; Basophils Absolute Auto 0 /uL (0-100); Basophils Percent Auto 0.4 % (0-2); Eosinophils Absolute Auto 0 /uL (0-450); Eosinophils Percent Auto 0.1 % (2-4); Hematocrit 39.6 % (36-46); Hemoglobin 13.4 g/dL (12.0-16.0); Lymphocytes Absolute Auto 2400 /uL (1100-4500); Lymphocytes Percent Auto 29.4 % (25-40); Mean Corpuscular Hemoglobin 31.7 PG (26-34); Mean Corpuscular Volume 93.3 fL (80-100); Monocytes Absolute Auto 1000 /uL (0-900); Monocytes Percent Auto 13.1 % (3-14); Neutrophils Absolute Auto 4600 /uL (1500-7000); Platelet Count 209 X10^3/uL (150-400); Red Blood Cell Count 4.24 X10^6/uL (4.0-5.2); Red Cell Distribution Width 12.7 % (11.6-14.8)
[2019-02-14] MEDS: CITALOPRAM 10 MG TABLET PO (12:06)
[2019-02-14] MEDS: metroNIDAZOLE 500 MG/100 ML PIGGYBACK 100 MG IV ×2 (12:49→19:40)
[2019-02-14] MEDS: LORazepam 1 MG TABLET PO ×2 (12:54→21:08)
[2019-02-14 13:23] LABS: Alanine Aminotransferase 43 IU/L (9-52); Albumin 3.9 g/dL (3.5-5.0); Albumin Globulin Ratio 1.3 (1.0-2.8); Alkaline Phosphatase 58 U/L (38-126); Aspartate Aminotransferase 28 IU/L (14-36); Bilirubin Total 0.3 mg/dL (0.2-1.3); Blood Urea Nitrogen 6 mg/dL (7-17); Calcium 8.5 mg/dL (8.4-10.2); Carbon Dioxide 22 mmol/L (22-32); Chloride 105 mmol/L (98-107); Estimated Glomerular Filt Rate > 60.0 mL/min (>60); Globulin 3.1 g/dL (1.7-4.1); Glucose 102 mg/dL (70-100); HEMOLYSIS < 15 (0-50); Potassium 3.2 mmol/L (3.4-5.1); Sodium 139 mmol/L (137-145)
[2019-02-14] MEDS: DOXYCYCLINE 100 MG in SODIUM CHLORIDE 0.9% 100 ML IV (14:08)
--- NOTE | 2019-02-14 16:58 | PC.NURSE ---
1500: Report received, care assumed. A&O, c/o headache.
[2019-02-14] MEDS: TRAZODONE 100 MG TABLET PO (22:43)
[2019-02-15] VITALS (11 sets, daily range): BP systolic 112–140; BP diastolic 69–92; PULSE 62–103; RESP 16–18; TEMP 36.4–37.2; O2SAT 96–100
[2019-02-15] MEDS: DOXYCYCLINE 100 MG in SODIUM CHLORIDE 0.9% 100 ML IV ×2 (00:28→13:16)
[2019-02-15] MEDS: KETOROLAC 30 MG/ML VIAL IV ×4 (00:28→23:47)
[2019-02-15] MEDS: ONDANSETRON 4 MG/2 ML INJ IV ×3 (00:29→12:18)
[2019-02-15] MEDS: metroNIDAZOLE 500 MG/100 ML PIGGYBACK 100 MG IV (03:46)
[2019-02-15 08:27] LABS: Add Manual Diff / Slide Review NO; Basophils Absolute Auto 0 /uL (0-100); Basophils Percent Auto 0.3 % (0-2); Eosinophils Absolute Auto 100 /uL (0-450); Eosinophils Percent Auto 1.2 % (2-4); Hematocrit 41.3 % (36-46); Hemoglobin 14.1 g/dL (12.0-16.0); Lymphocytes Absolute Auto 2300 /uL (1100-4500); Lymphocytes Percent Auto 21.4 % (25-40); Mean Corpuscular HGB Conc 34.1 % (30-36); Mean Corpuscular Hemoglobin 31.7 PG (26-34); Monocytes Absolute Auto 1100 /uL (0-900); Monocytes Percent Auto 9.9 % (3-14); Neutrophils Absolute Auto 7300 /uL (1500-7000); Neutrophils Percent Auto 67.2 % (50-75); Platelet Count 225 X10^3/uL (150-400); Red Blood Cell Count 4.44 X10^6/uL (4.0-5.2); Red Cell Distribution Width 12.8 % (11.6-14.8); White Blood Cell Count 10.8 X10^3/uL (4.5-11.0)
[2019-02-15 08:39] LABS: Alanine Aminotransferase 49 IU/L (9-52); Albumin 3.9 g/dL (3.5-5.0); Albumin Globulin Ratio 1.3 (1.0-2.8); Alkaline Phosphatase 63 U/L (38-126); Aspartate Aminotransferase 36 IU/L (14-36); BUN Creatinine Ratio 6.7 (6-22); Bilirubin Total 0.4 mg/dL (0.2-1.3); Blood Urea Nitrogen 4 mg/dL (7-17); Calcium 8.8 mg/dL (8.4-10.2); Carbon Dioxide 24 mmol/L (22-32); Chloride 103 mmol/L (98-107); Estimated Glomerular Filt Rate > 60.0 mL/min (>60); Globulin 3.1 g/dL (1.7-4.1); Glucose 91 mg/dL (70-100); HEMOLYSIS < 15 (0-50); Potassium 3.2 mmol/L (3.4-5.1); Sodium 140 mmol/L (137-145)
--- NOTE | 2019-02-15 08:46 | PC.NURSE ---
Addendum entered by Regina Wilburn R.N. 02/15/19 10:42: GI/ANXIETY - after compazine and ativan admin, pt no longer anxious, lying bed, smiling, looking at phone and talking to family, states continued to describe some abd discomfort, relief provided with warm blanket over lower abd area, james a few sips water. Addendum entered by Regina Wilburn R.N. 02/15/19 09:29: GI - New order rec'd Dr. Mello, 10mg iv compazine given. Addendum entered by Regina Wilburn R.N. 02/15/19 09:21: GI/PAIN - onset nausea and dry heaves, pt anxious, trembling, tearful, per mom and pt, what she had in ER provided better relief zoralph is not working, standby assist into br, voided, abd cramping like discomfort, no bm, ret to bed, discussed available medications and given 1mg SL ativan, Dr.James hale at 9 am and again at 920. Original Note: AM NOTE - pt is lying flat in bed, states no headache this am, continues with dizziness throughout night and this am, abd cramping like discomfort, no nausea, james only a few sips water this am, active bt, abd soft, provided warm blanket at splint for abd area, discussed mobilization oob later am, ra 97%, hr 68, call light available, advised pt to call staff prior to any oob, family rooming in.
[2019-02-15] MEDS: LORazepam 1 MG TABLET PO (09:17)
[2019-02-15] MEDS: SODIUM CHLORIDE 0.9% 1,000 ML 125 ML IV (09:17)
[2019-02-15] MEDS: PROCHLORPERAZINE 10 MG/2 ML VIAL IV ×3 (09:30→23:42)
[2019-02-15] MEDS: ENOXAPARIN 40 MG/0.4 ML SYRINGE SUBCUT (10:24)
[2019-02-15] MEDS: CITALOPRAM 10 MG TABLET PO (10:24)
--- NOTE | 2019-02-15 11:11 | PM.PN.1 ---
Subjective Subjective Date Patient Seen: 02/15/19 Time Patient Seen: 10:25 Interval history: Patient is 23-year-old female admitted with severe symptoms associated with PID. Also having significant amount of weakness and nausea. Evaluation should in ER showed elevated white count to 13 with a lactate that was borderline high CT image showed no appendicitis tubo-ovarian abscess other masses abscess colon inflammation of gallbladder disease or urinary abnormalities. Patient has been on makes of 3 antibiotics metronidazole doxycycline and cefotetan. The metronidazole was for Trichomonas that had been diagnosed earlier in the day at the private office. Through the course of this morning she has had more nausea and think become increasingly anxious. Did have some left-sided abdominal pain anteriorly no urinary symptoms does have small amount diarrhea. 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 Have reviewed lab and white count is normal at 10 with no left shift no anemia. Comforts metabolic panel shows borderline low potassium which correct with IV fluids and resolution of her elevated liver enzymes. Very supportive family someone in the room with her at all times. Anxiety issues I think aggravated prime primarily. By her nausea. Exam Vital Signs (past 8 hours): - 02/15/19 05:30 02/15/19 07:00 02/15/19 08:08 Temperature 97.5 F L 97.7 F Pulse Rate 103 H 62 Respiratory Rate 18 16 Blood Pressure 140/85 128/75 Pulse Oximetry 100 97 100 Oxygen Delivery Method Room Air Oxygen Flow Rate 0 Narrative Exam Narrative: Patient vaguely uncomfortable but much calmer now following some lorazepam sitting in bed answering questions very clearly and without confusion or sedation. Signs are absolutely perfect in terms of blood pressure art rate oxygen saturation labs reviewed extensively. PERRLA EOMs intact Neck without mass Lungs clear to auscultation percussion CV is is regular rate and rhythm without murmur S3 Abdomen has diffuse tenderness mild in the upper quadrants more significant and left lower quadrant mid pole supra pubic. A little worse on the left no rebound guarding masses. Back and spine normal to exam Neuro intact motor sensory as symmetrical cranial nerves within normal limits Psych shows patient with some anxiety not inappropriate. Objective Labs Result Diagrams: 02/15/19 08:05 02/15/19 08:05 Labs: Laboratory Results - last 24 hr 02/14/19 02/14/19 02/15/19 11:30 11:30 08:05 WBC 8.0 10.8 RBC 4.24 4.44 Hgb 13.4 14.1 Hct 39.6 41.3 MCV 93.3 93.0 MCH 31.7 31.7 MCHC 34.0 34.1 RDW 12.7 12.8 Plt Count 209 225 Neut % (Auto) 57.0 D 67.2 Lymph % (Auto) 29.[address] [place] % (Auto) 13.1 9.9 Eos % (Auto) 0.1 L 1.2 L Baso % (Auto) 0.4 0.3 Neut # (Auto) 4600 7300 H Lymph # (Auto) [address] [place] # (Auto) 1000 H 1100 H Eos # (Auto) 0 100 Baso # (Auto) 0 0 Sodium 139 Potassium 3.2 L Chloride 105 Carbon Dioxide 22 BUN 6 L Creatinine 0.50 L Estimated GFR > 60.0 BUN/Creatinine Ratio 12.0 Glucose 102 H Calcium 8.5 Total Bilirubin 0.3 AST 28 ALT 43 Alkaline Phosphatase 58 Total Protein 7.0 Albumin 3.9 Globulin 3.1 Albumin/Globulin Ratio 1.3 02/15/19 08:05 WBC RBC Hgb Hct MCV MCH MCHC RDW Plt Count Neut % (Auto) Lymph % (Auto) [place] % (Auto) Eos % (Auto) Baso % (Auto) Neut # (Auto) Lymph # (Auto) [place] # (Auto) Eos # (Auto) Baso # (Auto) Sodium 140 Potassium 3.2 L Chloride 103 Carbon Dioxide 24 BUN 4 L Creatinine 0.60 Estimated GFR > 60.0 BUN/Creatinine Ratio 6.7 Glucose 91 Calcium 8.8 Total Bilirubin 0.4 AST 36 ALT 49 Alkaline Phosphatase 63 Total Protein 7.0 Albumin 3.9 Globulin 3.1 Albumin/Globulin Ratio 1.3 Assessment & Plan Assessment & Plan narrative: Assessment 1. PID pelvic pain lab shows resolution of her elevated white count and left shift normalized mild elevation of liver enzymes. Continues to have trouble with nausea and has had some episodes of left lower quadrant pain. Mild diarrhea without any overt bleeding. CT scan of abdomen and pelvis showed no findings of mass tubo-ovarian abscess appendicitis kidney stones gallbladder disease or liver abnormalities. Will adjust antibiotics on minutes. The metronidazole to a just in case that is a component of her nausea will keep her other IV antibiotics going. Will also add some potassium to her IV as well. Assessment 2 headache is resolved for the most part no neurologic infectious issues she has had some slight dizziness but again no neurologic abnormality and this could be an anxiety issue. Assessment 3. Anxiety patient is anxious particularly within nausea. Have encouraged her to use low-dose lorazepam fairly regularly try to minimize both nausea and dizziness as well as her anxiety. Assessment 4. Hypokalemia patient potassium is 3.2 will increase her potassium intake with some added to her maintenance IV since she is still not taking much orally. Assessment 5. Prophylaxis of DVT and ulcers will. Will start pantoprazole in case that is causing her some of her nausea. Assessment 6 will obtain morning labs to monitor above. Time Spent With Patient Time with patient: Greater than 35 minutes Quality VTE Deep Vein Thrombosis/Pulmonary Embolism Present on Admission: No
[2019-02-15] MEDS: PANTOPRAZOLE 40 MG VIAL IV (12:00)
[2019-02-15] MEDS: KCL 20 MEQ IN NS 1,000 ML 125 MEQ IV ×2 (12:00→22:52)
[2019-02-15] MEDS: CEFOTETAN 1 GM/50 ML PIGGYBACK IV ×2 (12:27→23:55)
--- NOTE | 2019-02-15 12:35 | CM.IDA ---
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 No History Provided By Patient,Family Member,Medical Record Prior Living Arrangements House Household Members family Type of transporation used prior to Drives own vehicle admit Independent with ADL's Yes Is patient alert and oriented? Yes Caregiver for Another No Barriers to Discharge No Comment Spoke w/Dr Mello this morning, PID improving although pt continues to complain of some pain, nausea and anxiety today . Dr Mello further explains pt has a very supportive family and it's expected she will return Home w/family when medically cleared and abx are either DC or transition to po. No SW needs anticipated. This SEASONING SPRAYER staying out of room, pt has been feeling awful today Discharge Plan Home Transportation Arrangement Family Referrals Initiated None needed Review Status In Process
--- NOTE | 2019-02-15 22:16 | PC.NURSE ---
1500: Report received, care assumed. Pt A&Ox3. C/o pain, nausea; compazine administered. Pt. sleeping comfortably as of approximately 1930; still sleeping at this time. Frequent checks from RN and SCREENER PERFUMER.
[2019-02-16] VITALS (7 sets, daily range): BP systolic 131–144; BP diastolic 73–90; PULSE 63–73; RESP 16–18; TEMP 36.2–36.8; O2SAT 97–100
--- NOTE | 2019-02-16 00:11 | PC.NURSE ---
Addendum entered by Maribell Yanez R.N. 02/16/19 06:40: Slept most of shift. Did get up x 4 to bathroom with 1 assist and did not have any further unsteadiness. Did void total 650cc of urine this shift. No further complaints of nausea or pain. Original Note: Patient is alert and oriented. Breath sounds CTA with RA sat of 98%. HRR. Nauseated and had small emesis of sputum; medicated with Compazine. Initially stated abdominal pain only 3/10 but after vomiting pain had increased to 6/10 so medicated with Toradol. BT present; abdomen is tender to touch. Denies dysuria, frequency or urgency. Has not voided since 1800 and unable to void at this time when up to [facility] but does not feel uncomfortable. Able to turn self in bed. Assisted when out of bed as is unsteady/weak. Fall risk score is moderate; bed alarm is activated. Family rooming in.
[2019-02-16] MEDS: DOXYCYCLINE 100 MG in SODIUM CHLORIDE 0.9% 100 ML IV ×2 (00:38→12:43)
[2019-02-16 05:46] LABS: Add Manual Diff / Slide Review NO; Basophils Absolute Auto 0 /uL (0-100); Basophils Percent Auto 0.6 % (0-2); Eosinophils Absolute Auto 100 /uL (0-450); Eosinophils Percent Auto 1.7 % (2-4); Hematocrit 39.1 % (36-46); Hemoglobin 13.7 g/dL (12.0-16.0); Lymphocytes Absolute Auto 2800 /uL (1100-4500); Lymphocytes Percent Auto 34.5 % (25-40); Mean Corpuscular Hemoglobin 32.3 PG (26-34); Mean Corpuscular Volume 92.4 fL (80-100); Monocytes Absolute Auto 800 /uL (0-900); Monocytes Percent Auto 10.4 % (3-14); Neutrophils Absolute Auto 4300 /uL (1500-7000); Neutrophils Percent Auto 52.8 % (50-75); Platelet Count 236 X10^3/uL (150-400); Red Blood Cell Count 4.23 X10^6/uL (4.0-5.2); Red Cell Distribution Width 12.7 % (11.6-14.8); White Blood Cell Count 8.1 X10^3/uL (4.5-11.0)
[2019-02-16 05:52] LABS: Alanine Aminotransferase 35 IU/L (9-52); Albumin 3.7 g/dL (3.5-5.0); Albumin Globulin Ratio 1.2 (1.0-2.8); Alkaline Phosphatase 57 U/L (38-126); Aspartate Aminotransferase 27 IU/L (14-36); BUN Creatinine Ratio 8.3 (6-22); Bilirubin Total 0.4 mg/dL (0.2-1.3); Blood Urea Nitrogen 5 mg/dL (7-17); Calcium 8.5 mg/dL (8.4-10.2); Carbon Dioxide 23 mmol/L (22-32); Chloride 104 mmol/L (98-107); Estimated Glomerular Filt Rate > 60.0 mL/min (>60); Globulin 3.2 g/dL (1.7-4.1); Glucose 70 mg/dL (70-100); HEMOLYSIS < 15 (0-50); Magnesium 1.9 mg/dL (1.6-2.3); Potassium 3.6 mmol/L (3.4-5.1); Sodium 139 mmol/L (137-145); Total Protein 6.9 g/dL (6.3-8.2)
[2019-02-16] MEDS: PROCHLORPERAZINE 10 MG/2 ML VIAL IV ×2 (07:45→13:49)
[2019-02-16] MEDS: KETOROLAC 30 MG/ML VIAL IV ×3 (07:46→21:48)
[2019-02-16] MEDS: KCL 20 MEQ IN NS 1,000 ML 125 MEQ IV (08:26)
--- NOTE | 2019-02-16 08:28 | PM.PN.1 ---
Subjective Subjective Date Patient Seen: 02/16/19 Time Patient Seen: 08:28 Interval history: Patient overall feeling about the same. Still nauseated. Still requiring medicine. Not eating. Still having pain which she describes as primarily lower. No other significant change. No blood in her stool. No burning with urination. No other change. Still having moderate pain. Headache little bit last night. Exam Vital Signs (past 8 hours): - 02/16/19 04:50 Temperature 97.3 F L Pulse Rate 65 Respiratory Rate 18 Blood Pressure 134/73 Pulse Oximetry 100 Oxygen Delivery Method Room Air Oxygen Flow Rate 0 Narrative Exam Narrative: Alert smiling female moving slowly in no acute distress. Neck is without tenderness. Lungs are clear. Heart regular rate and rhythm. Abdomen is soft positive bowel sounds she has got pretty significant tenderness lower quadrants. No rebound. Moderate upper quadrant tenderness. No pedal splenomegaly no masses. Extremities without cyanosis clubbing edema. Skin is without rash. Normal turgor. Objective Labs Result Diagrams: 02/16/19 05:30 02/16/19 05:30 Labs: Laboratory Results - last 24 hr 02/15/19 02/15/19 02/16/19 08:05 08:05 05:30 WBC 10.8 8.1 RBC 4.44 4.23 Hgb 14.1 13.7 Hct 41.3 39.1 MCV 93.0 92.4 MCH 31.7 32.3 MCHC 34.1 35.0 RDW 12.8 12.7 Plt Count 225 236 Neut % (Auto) 67.2 52.8 Lymph % (Auto) 21.4 L 34.5 [place] % (Auto) 9.9 10.4 Eos % (Auto) 1.2 L 1.7 L Baso % (Auto) 0.3 0.6 Neut # (Auto) 7300 H 4300 Lymph # (Auto) 2300 2800 [place] # (Auto) 1100 H 800 Eos # (Auto) 100 100 Baso # (Auto) 0 0 Sodium 140 Potassium 3.2 L Chloride 103 Carbon Dioxide 24 BUN 4 L Creatinine 0.60 Estimated GFR > 60.0 BUN/Creatinine Ratio 6.7 Glucose 91 Calcium 8.8 Magnesium Total Bilirubin 0.4 AST 36 ALT 49 Alkaline Phosphatase 63 Total Protein 7.0 Albumin 3.9 Globulin 3.1 Albumin/Globulin Ratio 1.3 09/16/19 05:30 WBC RBC Hgb Hct MCV MCH MCHC RDW Plt Count Neut % (Auto) Lymph % (Auto) [place] % (Auto) Eos % (Auto) Baso % (Auto) Neut # (Auto) Lymph # (Auto) [place] # (Auto) Eos # (Auto) Baso # (Auto) Sodium 139 Potassium 3.6 Chloride 104 Carbon Dioxide 23 BUN 5 L Creatinine 0.60 Estimated GFR > 60.0 BUN/Creatinine Ratio 8.3 Glucose 70 Calcium 8.5 Magnesium 1.9 Total Bilirubin 0.4 AST 27 ALT 35 Alkaline Phosphatase 57 Total Protein 6.9 Albumin 3.7 Globulin 3.2 Albumin/Globulin Ratio 1.2 Assessment & Plan Assessment & Plan narrative: Problem 1. Abdominal pelvic pain. Possible PID. Patient has had some exposure. GC and chlamydia were negative. Cultures are negative. White count certainly is improving really not improving with nausea and vomiting. CT scans negative. test is negative. I would think that she should be improving more than she is although certainly fever is down and white count has normalized. Question is definitive cause. Still remarkably tender in the lower quadrants. Patient has history of cyst uterine surgery. May need to consider that is cause. Apparently she has not been feeling well since she had the surgery. We discussed with patient. Will consult Dr. Diaz and see what her recommendations are. Question reimage. If she feels this is not in the pelvis will consider general surgery consult. I think more likely this is pelvic in nature. Family understands. Questions answered. Problem 2. Hypokalemia. Seems to be doing well recheck tomorrow. Continue IV hydration. Problem 3. Headache. Suspect secondary to infection. With pretty significant elevation of her lactate was clear look that was the cause. As to where that is unclear at this time. Will follow. Problem 4. Dehydration. Will continue hydration. Problem 5. Nausea and vomiting. Probably secondary to 1. Will continue pantoprazole. Disposition. We will see how consult seal. Certainly seems to be trending in the right direction just not as quickly as I would thought. This family understands will follow Quality VTE Deep Vein Thrombosis/Pulmonary Embolism Present on Admission: No
[2019-02-16 08:56] LABS: Erythrocyte Sedimentation Rate 20 MM/HR (0-20)
[2019-02-16] MEDS: PANTOPRAZOLE 40 MG VIAL IV (10:06)
[2019-02-16] MEDS: ENOXAPARIN 40 MG/0.4 ML SYRINGE SUBCUT (10:06)
[2019-02-16] MEDS: CITALOPRAM 10 MG TABLET PO (10:06)
[2019-02-16] MEDS: LORazepam 1 MG TABLET PO (10:13)
[2019-02-16] MEDS: CEFOTETAN 1 GM/50 ML PIGGYBACK IV ×2 (11:07→23:58)
--- NOTE | 2019-02-16 12:30 | DI.US.S_ITS ---
PROCEDURE: US PELVIC COMPLETE INDICATIONS: PELVIC PAIN, IUD, POSSIBLE PID TECHNIQUE: Real-time scanning was performed of the pelvic organs, with image documentation. Additional endovaginal scanning was necessary due to incomplete visualization of the adnexal and endometrial structures by transabdominal scanning. COMPARISON: [facility], CT, CT ABDOMEN PELVIS W CON, 02/13/2019, 22:02. FINDINGS: Transabdominal scanning: Limited scanning through the kidneys shows no hydronephrosis. No pathologic free abdominal or pelvic fluid. Endovaginal scanning: Uterus: Uterus is normal in size measuring 7.6 cm long. The endometrium measures 4.6 mm in combined thickness. Air is an IUD in uterus. A small oblong fluid is noted in the endometrial canal. Ovaries: Right ovary measures 5.5 x 5.4 x 3.3 cm. Left ovary measures 2.3 x 2.1 x 2.1 cm. There is likely a 2.5 cm simple cyst in the right ovary, which is suboptimally visualized. IMPRESSION: 1. An IUD is identified in the endometrial cavity. Endometrium is normal in thickness. There is a small amount of fluid in the initial canal. 2. Probably a 2.5 cm simple cyst in right ovary. Dictated by: Muriel Cool M.D. on 02/16/2019 at 15:12 Approved by: Muriel Cool M.D. on 02/16/2019 at 15:20
--- NOTE | 2019-02-16 16:01 | PC.NURSE ---
Addendum entered by Rain Rashid R.N. 02/16/19 18:57: New orders to advance diet as tolerated. privided pt with crackers cheese, mom Deann, brought in food also. Pain remains 2/10. Original Note: Pt lying in bed with grandmother and mother in room. A/O x4, 98% RA, LS clear, denies SOB. ABD mildly distended, rates pain 2/10, denies nausea at this time, BT+, tolerating clears diet, enjoys sodium free broth. 1PA BRP to void clear yellow urine. RFA infusing doxy and finished @ 1545, NS + 20mg KCL @ 35 infusing, pt c/o burning during infusion this AM, backed rate to 35/hr, infusing with mild burning pain at this time. call light in reach.
--- NOTE | 2019-02-16 17:03 | PM.CN ---
History of Present Illness Consult details Date Patient Seen: 02/16/19 Time Patient Seen: 17:03 Chief complaint: DIZZY BAD HEADACHE THROWING UP NON STOP Reason for consult: Lower abdominal pain possible PID Requesting provider: Louie Ashraf Narrative: Patient with gradually increasing abdominal pain with onset of increasing headaches and severe nausea and vomiting. [facility] Medical History (Updated 02/16/19 @ 17:14 by Latricia Diaz MD) Mullerian anomaly of uterus (Acute) Patient denies medical problems (Acute) Surgical History (Updated 02/16/19 @ 17:06 by Latricia Diaz MD) History of laparotomy (Acute ~2015) Social History household members: family Smoking Status: Former smoker Social History household members: family Smoking Status: Former smoker Meds Home Medications and Allergies Home Medications Medication Instructions Recorded Confirmed Type citalopram 10 mg PO DAILY 11/22/17 02/14/19 History lorazepam [Ativan] 1 mg PO Q8H PRN #10 tab 11/22/17 02/14/19 Rx ondansetron [Zofran ODT] 4 mg PO Q6H PRN #10 tab 11/22/17 02/14/19 Rx trazodone 25 - 50 mg PO BEDTIME PRN 11/22/17 02/14/19 History Allergies Allergy/AdvReac Type Severity Reaction Status Date / Time No Known Allergies Allergy Uncoded 09/11/17 12:46 Review of Systems Review of Systems Narrative: Patient complains of migraine headaches. She had a very bad headache on admission but has improved since admission. Patient denies chest pains or shortness of breath. Patient continues to have nausea and intermittent emesis. She is feeling somewhat better than on admission. Patient complains of lower abdominal pain. Patient has chronic frequent bowel movements and denies any change in her bowel movements since her symptoms started. Patient has noticed urinary frequency and urgency but thinks it is situational in that she is unable to relax to allow the urine to come out. Patient has had no vaginal bleeding since placement of her progesterone IUD after repair of a uterine anomaly in approximately 2014. Her mother states this was to allow the uterus to heal prior to conception. Patient is sexually active she was recently diagnosed with Trichomonas and was started on oral metronidazole. PCR GC and Chlamydia are negative. Exam Vital Signs (past 8 hours): - 02/16/19 11:35 02/16/19 15:42 Temperature 97.2 F L 98.3 F Pulse Rate 71 67 Respiratory Rate 16 18 Blood Pressure 132/90 144/80 H Pulse Oximetry 97 98 Oxygen Delivery Method Room Air Oxygen Flow Rate 0 Narrative Exam Narrative: Patient's upper abdomen is nontender. No palpable organomegaly. Patient has tenderness across her lower abdomen but no rebound. Normal external genitalia, vagina, cervix. Despite the ultrasound done today showing the IUD is in correct place decision was made to remove her IUD in case this is PID or the IUD is causing some of her symptoms. The strings were grasped and the IUD removed without difficulty. Patient does have pelvic tenderness. Objective Imaging Pelvic ultrasound: Radiologist's impression: IUD in the correct place small follicular cyst on the right ovary. Normal uterus by ultrasound appearance. No evidence of tubo-ovarian abscesses. No cause for pain and found. CT scan - abdomen: Radiologist's impression: No obvious etiology for patient's symptoms. Labs Result Diagrams: 02/16/19 05:30 02/16/19 05:30 Labs: Laboratory Results - last 24 hr 02/16/19 02/16/19 02/16/19 05:30 05:30 05:30 WBC 8.1 RBC 4.23 Hgb 13.7 Hct 39.1 MCV 92.4 MCH 32.3 MCHC 35.0 RDW 12.7 Plt Count 236 Neut % (Auto) 52.8 Lymph % (Auto) 34.5 [facility] % (Auto) 10.4 Eos % (Auto) 1.7 L Baso % (Auto) 0.6 Neut # (Auto) 4300 Lymph # (Auto) 2800 [facility] # (Auto) 800 Eos # (Auto) 100 Baso # (Auto) 0 ESR 20 Sodium 139 Potassium 3.6 Chloride 104 Carbon Dioxide 23 BUN 5 L Creatinine 0.60 Estimated GFR > 60.0 BUN/Creatinine Ratio 8.3 Glucose 70 Calcium 8.5 Magnesium 1.9 Total Bilirubin 0.4 AST 27 ALT 35 Alkaline Phosphatase 57 C-Reactive Protein Total Protein 6.9 Albumin 3.7 Globulin 3.2 Albumin/Globulin Ratio 1.2 02/16/19 05:30 WBC RBC Hgb Hct MCV MCH MCHC RDW Plt Count Neut % (Auto) Lymph % (Auto) [facility] % (Auto) Eos % (Auto) Baso % (Auto) Neut # (Auto) Lymph # (Auto) [facility] # (Auto) Eos # (Auto) Baso # (Auto) ESR Sodium Potassium Chloride Carbon Dioxide BUN Creatinine Estimated GFR BUN/Creatinine Ratio Glucose Calcium Magnesium Total Bilirubin AST ALT Alkaline Phosphatase C-Reactive Protein 2.0 H Total Protein Albumin Globulin Albumin/Globulin Ratio Assessment & Plan Assessment and plan (1) Headache, migraine: Qualifiers: Migraine type: unspecified Status migrainosus presence: without status migrainosus Intractability: not intractable Qualified Code(s): G43.909 - Migraine, unspecified, not intractable, without status migrainosus Current visit: Yes Status: Acute Assessment & Plan narrative: Patient with nausea vomiting and pelvic pain of unclear etiology. Patient initially had elevated white blood cell count but resolved quickly. Patient is being treated for possible PID. Because of this decision was made to remove her IUD. Unclear for symptoms may be related to scar tissue from her laparotomy for repair of uterine abnormality. Continue IV antibiotics. Okay for patient to eat more solid food if she is up to it. Time Spent With Patient Time with patient: 15-24 minutes
[2019-02-16] MEDS: TRAZODONE 100 MG TABLET PO (21:48)
[2019-02-17 01:00] VITALS: BP 134/79; PULSE 61; RESP 18; TEMP 36.1; O2SAT 98
--- NOTE | 2019-02-17 01:18 | PC.NURSE ---
Addendum entered by Maribell Yanez R.N. 02/17/19 06:10: 0310 Edema noted in right forearm after 0100 antibiotic started to infuse and patient complains of burning. Attempted to restart IV (twice by this RN and twice by CATHETER FINISHER AND INSPECTOR, Jannet) unsuccessful. Patient not wanting IV restarted and states she is no longer having any pain or nausea. Dr. Ashraf informed and order to leave IV out and he will address in the morning. Addendum entered by Maribell Yanez R.N. 02/17/19 01:28: IVF infusing < MD ordered due to complaints of burning due to potassium. Per evening RN MD had been contacted and stated to decrease to whatever level is comfortable for patient. Increased at this time to 50cc/h to determine if burning is still an issue. Original Note: Patient is alert and oriented. Breath sounds diminished but CTA with RA sat of 98%. HRR. Denies nausea. BT present and abdomen is soft and non tender. Denies pain. Voiding without dysuria, frequency or urgency. Turns self in bed. SBA to bathroom but is steadier on feet tonight. Fall risk score is moderate but verbalizes agreement to call for assistance when getting out of bed and has been doing so appropriately so bed alarm is not in use. Grandmother rooming in.
[2019-02-17] MEDS: DOXYCYCLINE 100 MG in SODIUM CHLORIDE 0.9% 100 ML IV (01:22)
[2019-02-17] MEDS: KCL 20 MEQ IN NS 1,000 ML 50 MEQ IV (01:23)
[2019-02-17 04:52] VITALS: BP 132/87; PULSE 61; RESP 18; TEMP 36.6; O2SAT 96
[2019-02-17 06:29] LABS: Add Manual Diff / Slide Review NO; Basophils Absolute Auto 0 /uL (0-100); Basophils Percent Auto 0.4 % (0-2); Eosinophils Absolute Auto 100 /uL (0-450); Eosinophils Percent Auto 1.8 % (2-4); Hematocrit 40.8 % (36-46); Hemoglobin 14.4 g/dL (12.0-16.0); Lymphocytes Absolute Auto 3100 /uL (1100-4500); Lymphocytes Percent Auto 37.2 % (25-40); Mean Corpuscular HGB Conc 35.4 % (30-36); Mean Corpuscular Hemoglobin 32.3 PG (26-34); Mean Corpuscular Volume 91.2 fL (80-100); Monocytes Absolute Auto 900 /uL (0-900); Monocytes Percent Auto 10.3 % (3-14); Neutrophils Absolute Auto 4200 /uL (1500-7000); Neutrophils Percent Auto 50.3 % (50-75); Platelet Count 271 X10^3/uL (150-400); Red Blood Cell Count 4.47 X10^6/uL (4.0-5.2); Red Cell Distribution Width 12.6 % (11.6-14.8); White Blood Cell Count 8.3 X10^3/uL (4.5-11.0)
[2019-02-17 06:37] LABS: BUN Creatinine Ratio 6.7 (6-22); Blood Urea Nitrogen 4 mg/dL (7-17); Calcium 9.1 mg/dL (8.4-10.2); Carbon Dioxide 23 mmol/L (22-32); Chloride 104 mmol/L (98-107); Estimated Glomerular Filt Rate > 60.0 mL/min (>60); Glucose 76 mg/dL (70-100); HEMOLYSIS < 15 (0-50); Sodium 138 mmol/L (137-145)
[2019-02-17 07:37] VITALS: O2SAT 99
[2019-02-17 08:00] VITALS: BP 139/87; PULSE 74; RESP 16; TEMP 36.8; O2SAT 97
[2019-02-17] MEDS: CITALOPRAM 10 MG TABLET PO (09:42)
--- NOTE | 2019-02-17 10:17 | PC.NURSE ---
Day shift: Pt left unit in WC w/ family and LAW EXAMINER to private car. HAs MD maza and MD note. Paperwork signed and all questions answered. Pt has all personal belonings. Pt very happy to be feeling better and to be leaving the hospital this AM.
--- NOTE | 2019-02-17 13:20 | P.DS_ITS ---
History of Present Illness History of Present Illness Date Patient Seen: 02/17/19 Time Patient Seen: 08:20 Chief complaint: DIZZY BAD HEADACHE THROWING UP NON STOP Narrative: See history and physical dictated by Dr. Mello Discharge Providers Provider Date of admission: 02/14/19 00:21 Discharge Date: 02/17/19 Primary care physician: Louie Ashraf MD Consults: 02/14/19 00:04 Consult to Physician Routine Comment: Consulting Provider: Paul Mello Reason for consultation: Admission Has provider been notified: Yes 02/16/19 08:25 Consult to Physician Routine Comment: Consulting Provider: Latricia Diaz Reason for consultation: severe pelvic pain Has provider been notified: Yes Discharge provider: Louie Ashraf MD Summary Hospital Course Discharge Diagnosis: Abdominal/pelvic pain Hypokalemia Headache Dehydration Nausea and vomiting Anxiety Hospital Course: Abdominal pain. Patient came in with acute abdominal pain primarily pelvic although extended up the apt for abdomen. Severe in intensity. White count and elevated sepsis markers. Patient was placed on a broad coverage antibiotics doxy and Rocephin. Patient's white count room provide fever curve improved over the next 24 hours but nausea and abdominal pain did not change. At 48 hours she continued to have pain although CT scan and imaging showed no abnormality. Dr. Diaz was consulted and ultrasound showed no abnormality. Dr. Diaz pulled her IUD and patient remarkably felt better. She lost her IV in the middle the night on day before discharge he was doing well she be discharged home on antibiotics for 5 days although she was remarkably improved on exam. Patient will be followed up as an outpatient and question of Trichomonas will be followed up. Hypokalemia. Patient was noted on day 2 to be hypokalemic his potassium was a dded to her IV fluids and she was normalized by end of inpatient stay. [place] to be secondary to nausea and vomiting since has resolved no further follow-up will be needed. Headache. Probably secondary to acute illness completely resolved by day 3. Patient was not complaining at all. She had normal neurologic exam showed no evidence of any other significant abnormality and will be followed as an outpatient. Dehydration. Patient was moderately dehydrated on presentation. She was unable to take any fluids and IV hydration was began with aggressive hydration along with sepsis protocol. She continued with IV hydration up until the night before discharge she was taking fluids well on discharge and will be followed. Nausea and vomiting. Probably secondary to problem 1. Completely resolved at time of discharge. Difficult to manage during her period Of admission but had completely resolved she was feeling well. Anxiety. Will be continued on her usual medicines was not an issue during admission Status at Discharge Cognitive/behavioral status at discharge: at baseline, oriented Functional status at discharge: independent ambulation Overall status at discharge: patient is progressing back to baseline Time Spent with Patient Time spent: Greater than 30 minutes Exam Vital Signs (past 8 hours): - 02/17/19 07:37 02/17/19 08:00 Temperature 98.3 F Pulse Rate 74 Respiratory Rate 16 Blood Pressure 139/87 Pulse Oximetry 99 97 Oxygen Delivery Method Room Air Oxygen Flow Rate 0 Narrative Exam Narrative: Alert smiling female mildly fatigued no acute distress. Skin shows normal turgor no rash. HEENT exam mucous membranes moist. Neck is s upple without adenopathy lungs are clear. Heart regular rate and rhythm without murmur abdomen is soft positive bowel sounds with no definitive discomfort. Much improved over the last 24 hours. Extremities without cyanosis clubbing edema. Neurologic exam is nonfocal. Psychologically interactive appropriate with good eye contact. Objective Labs Result Diagrams: 02/17/19 06:20 02/17/19 06:20 Labs: Laboratory Results - last 24 hr 02/17/19 02/17/19 06:20 06:20 WBC 8.3 RBC 4.47 Hgb 14.4 Hct 40.8 MCV 91.2 MCH 32.3 MCHC 35.4 RDW 12.6 Plt Count 271 Neut % (Auto) 50.3 Lymph % (Auto) 37.2 [place] % (Auto) 10.3 Eos % (Auto) 1.8 L Baso % (Auto) 0.4 Neut # (Auto) 4200 Lymph # (Auto) 3100 [place] # (Auto) 900 Eos # (Auto) 100 Baso # (Auto) 0 Sodium 138 Potassium 4.0 Chloride 104 Carbon Dioxide 23 BUN 4 L Creatinine 0.60 Estimated GFR > 60.0 BUN/Creatinine Ratio 6.7 Glucose 76 Calcium 9.1 Discharge Plan Discharge Plan Patient Disposition: Home Discharge Med Rec/Prescriptions Prescriptions: New azithromycin 250 mg tablet 250 mg PO DAILY 2 Days RF: 0 cefuroxime axetil 500 mg tablet 500 mg PO BID Qty: 10 RF: 0 Continued trazodone 50 mg Tablet 25 - 50 mg PO BEDTIME PRN (Reason: Sleep) RF: 0 citalopram 10 mg Tablet 10 mg PO DAILY RF: 0 lorazepam [Ativan] 1 mg tablet 1 mg PO Q8H PRN (Reason: anxiety) Qty: 10 RF: 0 ondansetron [Zofran ODT] 4 mg tablet,disintegrating 4 mg PO Q6H PRN (Reason: nausea and vomiting) Qty: 10 RF: 0 Follow up/Referrals: Louie Ashraf MD [Primary Care Provider] - 1 Week (next week with me that works with her schedule) Provider Discharge Instructions Diet: Diet as Tolerated Activity: as tolerated Visit Report/Discharge Packet Instructions: Acidophilus and Other Probiotics (Alternative Therapy), DI for Pelvic Inflammatory Disease, Cefuroxime, Azithromycin Discharge Data Primary Care Provider: Louie Ashraf Discharges patient from system. Discharge Date/Time: 02/17/19 10:19 Quality VTE Deep Vein Thrombosis/Pulmonary Embolism Present on Admission: No
== END 2019-02-17 10:19 | disposition home or self-care (01) | DRG 759 ==
LOC: ED 02-14 00:03 → AC 02-14 00:22
PROVIDERS: Emergency Medicine; Admitting Provider Family Medicine; Emergency Provider Emergency Medicine; Family Provider Family Medicine; PCP Family Medicine; Visit Provider Family Medicine
DX: N73.0 Acute parametritis and pelvic cellulitis (principal); F41.9 Anxiety disorder, unspecified; G43.909 Migraine, unspecified, not intractable, without status migrainosus; R11.2 Nausea with vomiting, unspecified; E87.6 Hypokalemia; E86.0 Dehydration
CPT/HCPCS: 36415; 36591; 58301; 74177; 76830; 76856; 80048; 80053; 81001; 81025; 83605; 83690; 83735; 84145; 84703; 85025; 85610; 85651; 85730; 86140; 87040; 87400; 87491; 87502; 87591; 93005; 96365; 96367; 96368; 96375; 99252; 99285; C9113; J0780; J1200; J1650; J1885; J2270; J2405; Q9967

== ENCOUNTER → 2019-02-27 10:15 | Outpatient (CLI) | payer OTHER, SELFPAY ==
[2019-02-14 01:18] VITALS: BMI 29.2
--- NOTE | 2019-02-27 11:42 | DI.CT.S_ITS ---
PROCEDURE: CT ABDOMEN PELVIS W CON INDICATIONS: Pelvic and perineal pain TECHNIQUE: After the administration of oral and intravenous contrast, 5 mm thick sections acquired from the diaphragms to the symphysis. 5 mm thick coronal and sagittal reformats were performed. For radiation dose reduction, the following was used: automated exposure control, adjustment of mA and/or kV according to patient size. COMPARISON: [facility], CT, CT ABDOMEN PELVIS W CON, 02/13/2019, 22:02. FINDINGS: Image quality: Excellent. ABDOMEN: Lung bases: Lung bases are clear. Heart size is normal. Solid organs: Liver is normal in size and enhancement. Gallbladder is unremarkable. Biliary system is non-dilated. Pancreas enhances normally. Spleen is normal in size and enhancement. No adrenal nodules. Kidneys are normal in size and enhancement, without hydronephrosis. Peritoneum and bowel: Stomach, small bowel, and colon loops are normal in caliber and wall thickness. No free fluid or air. Nodes and vessels: No retroperitoneal or mesenteric adenopathy. Aorta and inferior vena cava are normal in caliber. Miscellaneous: No ventral hernias. PELVIS: Genitourinary: Bladder wall thickness is normal. Miscellaneous: Interval removal of IUD. A right adnexal cyst previously measured 1.8 cm and currently measures 4.9 cm. No inguinal hernias or adenopathy. Bones: No suspicious bony lesions. No vertebral body compression fractures. Mild posterior disc protrusions noted at L4-L5 and L5-S1. IMPRESSION: 1. A right ovarian cyst has increased from 1.8 cm to 4.3 cm. 2. No evidence of acute abdominal process. 3. Incidental note made of mild posterior disc protrusions at L4-L5 and L5-S1. Dictated by: Marshall Lema M.D. on 02/27/2019 at 12:00 Approved by: Marshall Lema M.D. on 02/27/2019 at 12:05
== END ==
PROVIDERS: Family Provider Family Medicine; PCP Family Medicine; Visit Provider Family Medicine
DX: R10.2 Pelvic and perineal pain (principal); N83.201 Unspecified ovarian cyst, right side; M51.26 Other intervertebral disc displacement, lumbar region; M51.27 Other intervertebral disc displacement, lumbosacral region
CPT/HCPCS: 74177; Q9967

== ENCOUNTER 2019-03-12 09:08 | Day surgery (SDC) | payer OTHER, SELFPAY ==
[2019-02-14 01:18] VITALS: BMI 29.2
[2019-03-11 07:35] VITALS: BMI 36.0
[2019-03-12] VITALS (16 sets, daily range): BP systolic 81–110; BP diastolic 39–72; PULSE 82–115; RESP 10–21; TEMP 36.4–37.3; O2SAT 95–100; BMI 35.9
--- NOTE | 2019-03-12 | PATH_ITS ---
[facility] Accession Number: [id number] . 01 Material submitted: . ovary - RIGHT OVARIAN CYST . 01 Clinical history: . UNSPECIFIED OVARIAN CYST, UNSPECIFIED SIDE PELVIC AND PERINEAL PAIN . 02 Diagnosis: Right Ovarian Cyst, Excision: Benign serous cystadenoma and a hemorrhagic corpus luteum cyst. No evidence of malignancy. MRV 03/19/2019 1339 Local . 02 Comment: As part of routine compliance quality performance analyst, Dr. Sandy has reviewed this case and agrees with the above diagnosis. . 02 Electronically signed: . Con Freitas MD, PhD, Pathologist NPI- [id number] . 01 Gross description: . Received in formalin, labeled right ovarian cyst, are multiple pieces of moser-gallo semi-translucent membranous tissue (3.7 x 3.5 x 0.2 cm in aggregate). No excrescences are identified. Digital Operations Analyst serial sections submitted in cassette A1. ([id number]) Additional sections: (A2,A3) remaining tissue, serially sectioned. This specimen is now entirely submitted. ([id number]) /MRV 03/17/2019 1602 Local . 02 Pathologist provided ICD-10: N83.201, N83.11 . 02 CPT . 061083 Performed at: [address] [facility] [address], [place], [place] [id number] MD Osito Barlow MD Phone: [phone] Performed at: 02 [facility] [address] [place], [place] [id number] MD Isabel Fuentes MD Phone: [phone]
[2019-03-12] MEDS: LACTATED RINGERS 1,000 ML 100 ML IV (09:58)
--- NOTE | 2019-03-12 11:09 | PM.HP.1 ---
History of Present Illness History of Present Illness Date Patient Seen: 03/12/19 Time Patient Seen: 11:09 Chief complaint: [id number] Narrative: Patient is a 23-year-old with a persistent right ovarian cyst and pelvic pain She is here for a diagnostic laparoscopy, excision of right ovarian cyst, possible fulguration of endometriosis Patient History Medical History (Updated 03/11/19 @ 07:48 by Brianna Christian RN) Anxiety and depression (Acute) Mullerian anomaly of uterus (Acute) Patient denies medical problems (Acute) Surgical History (Updated 02/16/19 @ 17:06 by Latricia Diaz MD) History of laparotomy (Acute ~2015) Social History household members: family Smoking Status: Former smoker alcohol intake: current Family & Social History Social History: household members family Tobacco & Substance use: Smoking Status Former smoker alcohol intake current alcohol intake frequency 0-2 drinks per day Substance Use Type does not use Meds Home Medications and Allergies Home Medications Medication Instructions Recorded Confirmed Type lorazepam [Ativan] 1 mg PO Q8H PRN #10 tab 11/22/17 03/12/19 Rx ondansetron [Zofran ODT] 4 mg PO Q6H PRN #10 tab 11/22/17 03/12/19 Rx citalopram 10 mg tablet 40 mg PO DAILY tab 03/04/19 03/12/19 History hydrocodone 5 mg-acetaminophen 325 1 tab PO Q4H 03/04/19 03/12/19 History mg tablet trazodone 50 mg tablet 100 mg PO BEDTIME PRN tab 03/04/19 03/12/19 History Allergies Allergy/AdvReac Type Severity Reaction Status Date / Time No Known Drug Allergies Allergy Verified 03/12/19 08:15 Exam Vital Signs (past 8 hours): - 03/12/19 09:31 Temperature 97.5 F L Pulse Rate 82 Respiratory Rate 14 Blood Pressure 110/70 Pulse Oximetry 96 Oxygen Delivery Method Room Air Narrative Exam Narrative: HEENT: No thyromegaly, no anterior cervical or supraclavicular lymphadenopathy. Lungs:Clear to auscultation bilaterally, no wheezes. Cardiovascular: Regular rate and rhythm, no murmurs, rubs, or gallops. Abdomen: Well-healed laparotomy scars. No hepatosplenomegaly. No masses palpable. External genitalia: Normal Vagina: Normal Cervix: Nulliparous Bimanual exam: 6 Week size uterus. Mobile. Right adnexal tenderness and fullness Rectal: No masses. Assessment & Plan Assessment & Plan narrative: Assessment: 23-year-old with a persistent right ovarian cyst and pelvic pain Plan: Diagnostic laparoscopy with excision of right ovarian cyst, possible fulguration of endometriosis Time Spent With Patient Time with patient: 15-24 minutes
--- NOTE | 2019-03-12 11:10 | PM.PREOP ---
Pre-operative Note Interval Note History & Physical reviewed/Exam performed by Physician: Yes Changes to H&P: No
--- NOTE | 2019-03-12 11:40 | SUR.OPER ---
Lithotomy on padded OR bed, head on pillow, arms secured on padded arm boards at <90 degrees abduction. Legs secured in padded yellow fins stirrups.
[2019-03-12] MEDS: BUPIVACAINE 0.5% W/ EPI (PF) VIAL 30 ML INJ (11:55)
[2019-03-12] MEDS: fentaNYL 100 MCG/2 ML INJ 50 MCG IV ×2 (12:41→12:46)
[2019-03-12] MEDS: HYDROMORPHONE 2 MG INJ 0.5 MG IV ×4 (12:52→13:13)
--- NOTE | 2019-03-12 13:11 | SUR.PHASEI ---
Pt consistently crying and asking why it hurts so much. Pt medicated for pain but is difficult to reassure. Dr. Mckinley notified, Ativan ordered prn.
[2019-03-12] MEDS: LORazepam 2 MG/ML INJ 0.5 MG IV ×2 (13:20→13:42)
[2019-03-12] MEDS: ONDANSETRON 4 MG/2 ML INJ IV (13:31)
[2019-03-12] MEDS: OXYCODONE/ACETAMINOPHEN 5/325 TABLET 1 TAB PO ×2 (13:38→14:40)
--- NOTE | 2019-03-12 14:36 | SUR.PHASEI ---
Dr. Mckinley notified HR 113-117, bp 84/38 and then 98/49. May discharge to OPD per MD and may repeat one dose of percocet.
--- NOTE | 2019-03-12 15:03 | SUR.PHASEII ---
Pt no longer teary, grimacing but able to converse with family easily. Call light within reach.
--- NOTE | 2019-03-12 17:39 | SUR.PHASEII ---
1600 Dr. Rich at bedside, discussed patient's status and pain level, ok to discharge per MD. Pt ambulated to the bathroom, sba. Light pink vaginal drainage noted on wipes. Pad provided. Pt expressed desire to discharge.
--- NOTE | 2019-04-02 00:19 | PM.GYNOP.1 ---
Operative Date/Time/Diagnoses Date of procedure: 03/12/19 Time of procedure: 12:00 Pre-op diagnosis: Pelvic pain Right ovarian cyst Post-op diagnosis: same Procedure & Clinicians Procedure: Procedures Operation Date: 03/12/19 10:15 Actual Procedures Side Surgeon p Laparoscopic Removal of right Ovarian Cyst with Lysis of omental adhesions Right Natalie Rich MD Indications: Pelvic pain Right ovarian cyst Surgeon: Natalie Rich Anesthesia Type: General Operative Notes Findings: 4 cm right ovarian cyst Left omental to anterior abdominal wall adhesions Closure Type: primary Specimen(s): other (Right ovarian cyst) Applied: catheter Estimated blood loss (mL): 10 Blood products transfused: none Procedure in detail: After informed consent was obtained, the patient was taken to the operating room where she was placed in the dorsal supine position. After adequate general endotracheal anesthesia was achieved, she was placed in the dorsal lithotomy position, and prepped and draped in the usual sterile fashion. A time-out was performed. A bivalve speculum was placed into the vagina and the anterior lip of the cervix grasped with a single-tooth tenaculum. The cervical os was sequentially dilated until the Zumi uterine manipulator could pass easily into the endometrial cavity. The single-tooth tenaculum was removed from the anterior lip of the cervix. The bivalve speculum was removed from the vagina. Attention was then turned to the abdomen where 6 cc of 0.5% Marcaine with epinephrine were injected in the umbilical fold. A 5 mm incision was made. The Veress needle was placed into the peritoneal cavity, and its placement confirmed by aspiration and drop test. The abdominal cavity was insufflated with 4.2 L of CO2. The Veress needle was removed, and a 5 mm trocar was placed without difficulty. Initial inspection of the pelvis and abdomen revealed a normal uterus. Normal tubes bilaterally. There was Biosyn 4 cm right ovarian cyst. Normal liver, gallbladder, and appendix. Left omental to anterior abdominal wall adhesions. Two other incisions were made midway between the pubic symphysis and umbilicus, 4 cm lateral to the midline. These were made after 6 cc of 0.5% Marcaine with epinephrine were injected. Two 5 mm trocars were placed under direct visualization. An atraumatic grasper was used to grasp the omentum. Using the PlasmaKinetic, the omentum was taken down from the anterior abdominal wall with settings at 40 w. Hemostasis was achieved. The right utero-ovarian ligament was grasped with an atraumatic grasper. Using the PlasmaKinetic, the right ovarian cyst was excised using cautery and cut. The cyst was pulled through the trocar and handed off for specimen. The pelvis and abdomen were copiously irrigated with warm normal saline. There was no bleeding noted. The instruments were removed from the abdomen. The CO2 was allowed to escape. The incisions were repaired with 4 0 Biosyn in a subcuticular fashion. Steri-Strips, 2 x 2, and op site were placed. The Zumi uterine manipulator was removed from the uterus. Sponge, lap, and instrument counts were correct x2. The patient tolerated the procedure well, and was taken to PACU in stable condition. Complications: none Post-operative Condition: stable Disposition: PACU Plan for aftercare: Home after recovery
== END 2019-03-12 16:15 | disposition home or self-care (01) ==
PROVIDERS: Family Provider Family Medicine; PCP Family Medicine; Visit Provider Obstetrics & Gynecology
PROC: (CPT 58662; principal; 2019-03-12 10:15)
DX: N83.11 Corpus luteum cyst of right ovary (principal); F41.9 Anxiety disorder, unspecified; F32.9 Major depressive disorder, single episode, unspecified; N83.201 Unspecified ovarian cyst, right side
CPT/HCPCS: 58662; J1100; J1170; J1885; J2060; J2250; J2405; J2704; J3010

== ENCOUNTER 2019-08-07 17:36 | Emergency (ER) | payer OTHER, SELFPAY ==
[2019-02-14 01:18] VITALS: BMI 29.2
[2019-08-07 18:13] VITALS: BP 119/90; PULSE 97; RESP 24; TEMP 36.4; O2SAT 96; BMI 31.1
[2019-08-07] MEDS: SODIUM CHLORIDE 0.9% 1,000 ML 1000 ML IV ×2 (18:31→20:43)
[2019-08-07] MEDS: ONDANSETRON 4 MG/2 ML INJ IV (18:31)
[2019-08-07 18:44] LABS: Add Manual Diff / Slide Review NO; Basophils Absolute Auto 0 /uL (0-100); Basophils Percent Auto 0.3 % (0-2); Eosinophils Absolute Auto 100 /uL (0-450); Eosinophils Percent Auto 0.9 % (2-4); Hematocrit 46.9 % (36-46); Hemoglobin 16.1 g/dL (12.0-16.0); Lymphocytes Absolute Auto 1800 /uL (1100-4500); Lymphocytes Percent Auto 11.2 % (25-40); Mean Corpuscular HGB Conc 34.4 % (30-36); Monocytes Absolute Auto 700 /uL (0-900); Monocytes Percent Auto 4.1 % (3-14); Neutrophils Absolute Auto 13800 /uL (1500-7000); Neutrophils Percent Auto 83.5 % (50-75); Platelet Count 487 X10^3/uL (150-400); Red Blood Cell Count 5.04 X10^6/uL (4.0-5.2); Red Cell Distribution Width 13.4 % (11.6-14.8); White Blood Cell Count 16.5 X10^3/uL (4.5-11.0)
[2019-08-07 18:54] LABS: Alanine Aminotransferase 40 IU/L (<35); Albumin 5.1 g/dL (3.5-5.0); Albumin Globulin Ratio 1.2 (1.0-2.8); Alkaline Phosphatase 103 U/L (38-126); Aspartate Aminotransferase 41 IU/L (14-36); Bilirubin Total 0.6 mg/dL (0.2-1.3); Blood Urea Nitrogen 6 mg/dL (7-17); Calcium 10.3 mg/dL (8.4-10.2); Carbon Dioxide 22 mmol/L (22-32); Chloride 102 mmol/L (98-107); Estimated Glomerular Filt Rate > 60.0 mL/min (>60); Globulin 4.3 g/dL (1.7-4.1); Glucose 211 mg/dL (70-100); HEMOLYSIS 50 (0-50); Lipase 81 U/L (23-300); Potassium 4.1 mmol/L (3.4-5.1); Prothrombin Time 11.5 SECONDS (10.1-12.7); Sodium 138 mmol/L (137-145); Total Protein 9.4 g/dL (6.3-8.2)
[2019-08-07 18:57] LABS: PTT Partial Thromboplastin Tim 33 SECONDS (26.4-36.2)
[2019-08-07 19:59] VITALS: BP 157/79; PULSE 91; RESP 20; O2SAT 94
--- NOTE | 2019-08-07 20:02 | ED.NAVMDI ---
HPI - Nausea/Vomiting/Diarrhea <KOMAL Reeder - Last Filed: 08/07/19 23:55> General Chief complaint: Nausea/Vomiting/Diarrhea Stated complaint: vomiting Time Seen by Provider: 08/07/19 19:49 Source: patient and family Mode of arrival: Ambulatory Limitations: no limitations History of Present Illness HPI Narrative: The patient is a 23-year-old female current marijuana use a who presents with a chief complaint of nausea and vomiting. She states it started at 4:00 a.m. this afternoon. Mother states that this is consistent with her previous presentation here which lead to admission for PID. The patient states she has not taken anything at home to feel better. She does use and inhale marijuana, last use yesterday. She denies any fevers, chest pain or shortness of breath. She denies any dysuria urgency or frequency. She denies any vaginal discharge or concern about sexually transmitted infections. Related Data Home Medications Medication Instructions Recorded Confirmed hydrocodone 5 mg-acetaminophen 325 1 tab PO Q4H 03/04/19 03/25/19 mg tablet trazodone 50 mg tablet 100 mg PO BEDTIME PRN tab 03/04/19 03/25/19 citalopram 40 mg PO DAILY 08/07/19 08/07/19 Previous Rx's Medication Instructions Recorded hydrocodone-acetaminophen [[place]] 1 tab PO Q4-6H PRN #20 tab 03/12/19 norethindrone acetate 1 mg-ethinyl 1 tab PO DAILY #126 tab 03/25/19 estradiol 20 mcg tablet ondansetron 4 mg PO Q6H PRN #20 tab 08/07/19 prochlorperazine maleate 10 mg PO Q8H PRN #14 tab 08/07/19 [Compazine] Allergies Allergy/AdvReac Type Severity Reaction Status Date / Time No Known Drug Allergies Allergy Verified 03/25/19 08:01 Review of Systems <KOMAL Reeder - Last Filed: 08/07/19 23:55> Review of Systems Narrative: GENERAL: Denies chills, fatigue, malaise, fever, sweats. HEENT: Denies sinus pain, ear pain, sore throat, difficulty swallowing, dizziness. RESPIRATORY: Denies dyspnea, cough, wheezing, hemoptysis, sputum. CARDIOVASCULAR: Denies chest pain, palpitations, orthopnea, edema, GASTROINTESTINAL: See HPI : See HPI MUSCULOSKELETAL: denies weakness, joint pain, or bony pain SKIN: Denies rash, skin lesions, or other NEUROLOGIC: Denies weakness, headache, numbness, change in speech, confusion, seizures, incoordination. PSYCHIATRIC: No concerning psychosocial issues. 12 point review of systems is negative except for those stated above Patient History <KOMAL Reeder - Last Filed: 08/07/19 23:55> Medical History Anxiety and depression (Acute) Mullerian anomaly of uterus (Acute) Patient denies medical problems (Acute) Surgical History H/O laparoscopy (Acute ~03/12/19) History of laparotomy (Acute ~2014) S/P removal of ovarian cyst (Acute ~03/12/19) Social History household members: family Smoking Status: Former smoker alcohol intake: current Smoking Status: Former smoker alcohol intake frequency: 0-2 drinks per day Substance Use Type: marijuana Exam <KOMAL Reeder - Last Filed: 08/07/19 23:55> Narrative Exam Narrative: GENERAL: This is a well-nourished, well-developed patient, appears uncomfortable, holding vomit back HEAD: Atraumatic. Normocephalic. No temporal or scalp tenderness. EYES: Pupils equal round and reactive. Extraocular motions intact. No scleral icterus. No injection or drainage. ENT: Nose without bleeding, purulent drainage or septal hematoma. Throat without erythema, tonsillar hypertrophy or exudate. Uvula midline. Airway patent. NECK: Trachea midline. No JVD or lymphadenopathy. Supple, nontender, no meningeal signs. CARDIOVASCULAR: Regular rate and rhythm RESPIRATORY: Clear to auscultation. Breath sounds equal bilaterally. No wheezes, rales, or rhonchi. No cough. No increased respiratory effort. No accessory muscle use. GASTROINTESTINAL: Abdomen soft, diffusely tender to palpation with no guarding active bowel sounds all 4 quadrants, nondistended. No hepato-splenomegaly,No guarding. EXTREMITIES: No clubbing, cyanosis, or edema. No joint tenderness, effusion, or edema noted. BACK: Nontender without deformity or crepitance. No flank tenderness. NEURO: AOx3. SKIN: No rash or erythema on visible skin Initial Vital Signs Initial Vital Signs: Vital Signs Temperature 97.6 F 08/07/19 18:13 Pulse Rate 97 H 08/07/19 18:13 Respiratory Rate 24 08/07/19 18:13 Blood Pressure 119/90 08/07/19 18:13 Pulse Oximetry 96 08/07/19 18:13 <Graciela Wright MD - Last Filed: 08/08/19 13:39> Initial Vital Signs Initial Vital Signs: Vital Signs Temperature 97.6 F 08/07/19 18:13 Pulse Rate 97 H 08/07/19 18:13 Respiratory Rate 24 08/07/19 18:13 Blood Pressure 119/90 08/07/19 18:13 Pulse Oximetry 96 08/07/19 18:13 <Jose Marie DO - Last Filed: 08/08/19 17:46> Initial Vital Signs Initial Vital Signs: Vital Signs Temperature 97.6 F 08/07/19 18:13 Pulse Rate 97 H 08/07/19 18:13 Respiratory Rate 24 08/07/19 18:13 Blood Pressure 119/90 08/07/19 18:13 Pulse Oximetry 96 08/07/19 18:13 Course <SONALI ReederBC - Last Filed: 08/07/19 23:55> Orders Ordered: Discontinued Medications Diphenhydramine HCl (Benadryl) 50 mg IV NOW ONE Stop: 08/07/19 20:01 Last Admin: 08/07/19 20:43 Dose: 50 mg Documented by: KAREN Sodium Chloride (Normal Saline 0.9%) 1,000 mls @ 1,000 mls/hr IV BOLUS ONE Stop: 08/07/19 19:29 Last Infusion: 08/07/19 19:41 Dose: 0 mls/hr Documented by: Admin: 08/07/19 18:31 Dose: 1,000 mls/hr Documented by: DIMASLE Sodium Chloride (Normal Saline 0.9%) 1,000 mls @ 1,000 mls/hr IV BOLUS ONE Stop: 08/07/19 21:09 Last Infusion: 08/07/19 22:10 Dose: 0 mls/hr Documented by: Admin: 08/07/19 20:43 Dose: 1,000 mls/hr Documented by: KAREN Lorazepam (Ativan) 1 mg IV NOW ONE Stop: 08/07/19 21:33 Last Admin: 08/07/19 21:37 Dose: 1 mg Documented by: CARLOAT Metoclopramide HCl (Reglan) 10 mg IV NOW ONE Stop: 08/07/19 20:01 Ondansetron HCl (Zofran) 4 mg IV NOW ONE Stop: 08/07/19 18:31 Last Admin: 08/07/19 18:31 Dose: 4 mg Documented by: CÉSAR Ondansetron HCl (Zofran Odt Prepack) 1 bottle MISC SEEINSTR ONE Stop: 08/07/19 23:41 Last Admin: 08/08/19 00:02 Dose: 1 bottle Documented by: CARLOTA Prochlorperazine (Compazine) 10 mg IV NOW ONE Stop: 08/07/19 20:20 Last Admin: 08/07/19 20:42 Dose: 10 mg Documented by: KAREN Vital Signs Vital signs: Vital Signs - 8 hr 08/07/19 18:13 08/07/19 19:59 08/07/19 21:13 Temperature 97.6 F Pulse Rate 97 H 91 H 63 Respiratory Rate 24 20 21 Blood Pressure 119/90 Blood Pressure [Left Arm] 157/79 H 157/79 H Pulse Oximetry 96 94 99 <Graciela Wright MD - Last Filed: 08/08/19 13:39> Orders Ordered: Discontinued Medications Diphenhydramine HCl (Benadryl) 50 mg IV NOW ONE Stop: 08/07/19 20:01 Last Admin: 08/07/19 20:43 Dose: 50 mg Documented by: KAREN Sodium Chloride (Normal Saline 0.9%) 1,000 mls @ 1,000 mls/hr IV BOLUS ONE Stop: 08/07/19 19:29 Last Infusion: 08/07/19 19:41 Dose: 0 mls/hr Documented by: Admin: 08/07/19 18:31 Dose: 1,000 mls/hr Documented by: CSIEDLE Sodium Chloride (Normal Saline 0.9%) 1,000 mls @ 1,000 mls/hr IV BOLUS ONE Stop: 08/07/19 21:09 Last Infusion: 08/07/19 22:10 Dose: 0 mls/hr Documented by: Admin: 08/07/19 20:43 Dose: 1,000 mls/hr Documented by: KAREN Lorazepam (Ativan) 1 mg IV NOW ONE Stop: 08/07/19 21:33 Last Admin: 08/07/19 21:37 Dose: 1 mg Documented by: CARLOTA Metoclopramide HCl (Reglan) 10 mg IV NOW ONE Stop: 08/07/19 20:01 Ondansetron HCl (Zofran) 4 mg IV NOW ONE Stop: 08/07/19 18:31 Last Admin: 08/07/19 18:31 Dose: 4 mg Documented by: CÉSAR Ondansetron HCl (Zofran Odt Prepack) 1 bottle MISC SEEINSTR ONE Stop: 08/07/19 23:41 Last Admin: 08/08/19 00:02 Dose: 1 bottle Documented by: CARLOTA Prochlorperazine (Compazine) 10 mg IV NOW ONE Stop: 08/07/19 20:20 Last Admin: 08/07/19 20:42 Dose: 10 mg Documented by: KAREN Reevaluation(s) Reevaluation #1: Phone call from radiology with over read regarding CT scan. The overnight read mentioned a decompressed colon without any fat stranding. Dr. Herrmann is wondering if there might actually be wall thickening and signs of colitis. Her recommendation is outpatient follow-up and consideration of re-evaluation with possible GI referral. Will relate this information to Dr. Ashraf, PCP MD Kyle Time: 08:18 Vital Signs Vital signs: Vital Signs - 8 hr 08/07/19 18:13 08/07/19 19:59 08/07/19 21:13 Temperature 97.6 F Pulse Rate 97 H 91 H 63 Respiratory Rate 24 20 21 Blood Pressure 119/90 Blood Pressure [Left Arm] 157/79 H 157/79 H Pulse Oximetry 96 94 99 <Jose Marie, - Last Filed: 08/08/19 17:46> Orders Ordered: Discontinued Medications Diphenhydramine HCl (Benadryl) 50 mg IV NOW ONE Stop: 08/07/19 20:01 Last Admin: 08/07/19 20:43 Dose: 50 mg Documented by: KAREN Sodium Chloride (Normal Saline 0.9%) 1,000 mls @ 1,000 mls/hr IV BOLUS ONE Stop: 08/07/19 19:29 Last Infusion: 08/07/19 19:41 Dose: 0 mls/hr Documented by: Admin: 08/07/19 18:31 Dose: 1,000 mls/hr Documented by: CÉSAR Sodium Chloride (Normal Saline 0.9%) 1,000 mls @ 1,000 mls/hr IV BOLUS ONE Stop: 08/07/19 21:09 Last Infusion: 08/07/19 22:10 Dose: 0 mls/hr Documented by: Admin: 08/07/19 20:43 Dose: 1,000 mls/hr Documented by: KAREN Lorazepam (Ativan) 1 mg IV NOW ONE Stop: 08/07/19 21:33 Last Admin: 08/07/19 21:37 Dose: 1 mg Documented by: CARLOTA Metoclopramide HCl (Reglan) 10 mg IV NOW ONE Stop: 08/07/19 20:01 Ondansetron HCl (Zofran) 4 mg IV NOW ONE Stop: 08/07/19 18:31 Last Admin: 08/07/19 18:31 Dose: 4 mg Documented by: CÉSAR Ondansetron HCl (Zofran Odt Prepack) 1 bottle MIS SEEINSTR ONE Stop: 08/07/19 23:41 Last Admin: 08/08/19 00:02 Dose: 1 bottle Documented by: CARLOTA Prochlorperazine (Compazine) 10 mg IV NOW ONE Stop: 08/07/19 20:20 Last Admin: 08/07/19 20:42 Dose: 10 mg Documented by: KAREN Vital Signs Vital signs: Vital Signs - 8 hr 08/07/19 18:13 08/07/19 19:59 08/07/19 21:13 Temperature 97.6 F Pulse Rate 97 H 91 H 63 Respiratory Rate 24 20 21 Blood Pressure 119/90 Blood Pressure [Left Arm] 157/79 H 157/79 H Pulse Oximetry 96 94 99 MDM - Nausea/Vomiting/Diarrhea <IRIS Reeder-REBEKAH - Last Filed: 08/07/19 23:55> Lab Data Result diagrams: 08/07/19 18:34 08/07/19 18:34 Labs: Lab Results 08/07/19 08/07/19 08/07/19 Range/Units 18:34 18:34 18:34 WBC 16.5 H (4.5-11.0) X10^3/uL RBC 5.04 (4.0-5.2) X10^6/uL Hgb 16.1 H (12.0-16.0) g/dL Hct 46.9 H (36-46) % MCV 93.0 (80-100) fL MCH 32.0 (26-34) PG MCHC 34.4 (30-36) % RDW 13.4 (11.6-14.8) % Plt Count 487 H (150-400) X10^3/uL Neut % (Auto) 83.5 H (50-75) % Lymph % (Auto) 11.2 L (25-40) % [place] % (Auto) 4.1 (3-14) % Eos % (Auto) 0.9 L (2-4) % Baso % (Auto) 0.3 (0-2) % Neut # (Auto) 73920 H (2611-0563) /uL Lymph # (Auto) 1800 (6397-0693) /uL [place] # (Auto) 700 (0-900) /uL Eos # (Auto) 100 (0-450) /uL Baso # (Auto) 0 (0-100) /uL PT 11.5 (10.1-12.7) SECONDS INR 1.0 (0.9-1.3) APTT 33 (26.4-36.2) SECONDS Sodium 138 (137-145) mmol/L Potassium 4.1 (3.4-5.1) mmol/L Chloride 102 (98-107) mmol/L Carbon Dioxide 22 (22-32) mmol/L BUN 6 L (7-17) mg/dL Creatinine 0.60 (0.52-1.04) mg/dL Estimated GFR > 60.0 (>60) mL/min BUN/Creatinine Ratio 10.0 (6-22) Glucose 211 H (70-100) mg/dL Calcium 10.3 H (8.4-10.2) mg/dL Total Bilirubin 0.6 (0.2-1.3) mg/dL AST 41 H (14-36) IU/L ALT 40 H (<35) IU/L Alkaline Phosphatase 103 (38-126) U/L Total Protein 9.4 H (6.3-8.2) g/dL Albumin 5.1 H (3.5-5.0) g/dL Globulin 4.3 H (1.7-4.1) g/dL Albumin/Globulin Ratio 1.2 (1.0-2.8) Lipase 81 (23-300) U/L HCG, Quant mIU/mL 08/07/19 Range/Units 18:34 WBC (4.5-11.0) X10^3/uL RBC (4.0-5.2) X10^6/uL Hgb (12.0-16.0) g/dL Hct (36-46) % MCV (80-100) fL MCH (26-34) PG MCHC (30-36) % RDW (11.6-14.8) % Plt Count (150-400) X10^3/uL Neut % (Auto) (50-75) % Lymph % (Auto) (25-40) % [place] % (Auto) (3-14) % Eos % (Auto) (2-4) % Baso % (Auto) (0-2) % Neut # (Auto) (4268-6218) /uL Lymph # (Auto) (2430-0127) /uL [place] # (Auto) (0-900) /uL Eos # (Auto) (0-450) /uL Baso # (Auto) (0-100) /uL PT (10.1-12.7) SECONDS INR (0.9-1.3) APTT (26.4-36.2) SECONDS Sodium (137-145) mmol/L Potassium (3.4-5.1) mmol/L Chloride (98-107) mmol/L Carbon Dioxide (22-32) mmol/L BUN (7-17) mg/dL Creatinine (0.52-1.04) mg/dL Estimated GFR (>60) mL/min BUN/Creatinine Ratio (6-22) Glucose (70-100) mg/dL Calcium (8.4-10.2) mg/dL Total Bilirubin (0.2-1.3) mg/dL AST (14-36) IU/L ALT (<35) IU/L Alkaline Phosphatase (38-126) U/L Total Protein (6.3-8.2) g/dL Albumin (3.5-5.0) g/dL Globulin (1.7-4.1) g/dL Albumin/Globulin Ratio (1.0-2.8) Lipase (23-300) U/L HCG, Quant < 2.39 mIU/mL Point of Care Testing Test Results Negative Urine Dip Bedside Urine Glucose 100 mg/dl Bedside Urine Bilirubin - Negative Bedside Urine Ketone +++ 80 Urine Specific [place] 1.020 Bedside Urine Occult Blood - Negative Bedside Urine pH 6.0 Bedside Urine Protein +/- 15 Bedside Urine Urobilinogen - Negative Bedside Urine Nitrite - Negative Bedside Urine Leukocytes - Negative Esterase Imaging Data CT scan - abdomen/pelvis: Radiologist's Impression: :Night read diffusely decompressed colon with no acute inflammatory changes. No bowel obstruction or ascites. [facility] Narrative Medical decision making narrative: The patient is a 23-year-old female who presents with a chief complaint of nausea and vomiting. She had slight leukocytosis at 16 and had a significant pain on exam. Thus imaging was obtained, and diarrhea shows no acute etiology for abdomen pelvis CT with contrast. The patient state much improved with the above stated therapies and was able to tolerate p.o. fluids. Patient was discharged with prepack of Zofran as well as prescriptions of Zofran and Compazine. I discussed at length following up with primary care provider, suggested food allergy testing and further GI evaluation as the patient declined GI evaluation in the past. Discussed coming back to the emergency department for any acute concerns. Patient has no questions or concerns upon discharge and states understanding of return precautions as well as follow-up care. <Graciela Wright MD - Last Filed: 08/08/19 13:39> Lab Data Labs: Lab Results 08/07/19 08/07/19 08/07/19 Range/Units 18:34 18:34 18:34 WBC 16.5 H (4.5-11.0) X10^3/uL RBC 5.04 (4.0-5.2) X10^6/uL Hgb 16.1 H (12.0-16.0) g/dL Hct 46.9 H (36-46) % MCV 93.0 (80-100) fL MCH 32.0 (26-34) PG MCHC 34.4 (30-36) % RDW 13.4 (11.6-14.8) % Plt Count 487 H (150-400) X10^3/uL Neut % (Auto) 83.5 H (50-75) % Lymph % (Auto) 11.2 L (25-40) % [place] % (Auto) 4.1 (3-14) % Eos % (Auto) 0.9 L (2-4) % Baso % (Auto) 0.3 (0-2) % Neut # (Auto) 27167 H (0240-1243) /uL Lymph # (Auto) 1800 (1695-0983) /uL [place] # (Auto) 700 (0-900) /uL Eos # (Auto) 100 (0-450) /uL Baso # (Auto) 0 (0-100) /uL PT 11.5 (10.1-12.7) SECONDS INR 1.0 (0.9-1.3) APTT 33 (26.4-36.2) SECONDS Sodium 138 (137-145) mmol/L Potassium 4.1 (3.4-5.1) mmol/L Chloride 102 (98-107) mmol/L Carbon Dioxide 22 (22-32) mmol/L BUN 6 L (7-17) mg/dL Creatinine 0.60 (0.52-1.04) mg/dL Estimated GFR > 60.0 (>60) mL/min BUN/Creatinine Ratio 10.0 (6-22) Glucose 211 H (70-100) mg/dL Calcium 10.3 H (8.4-10.2) mg/dL Total Bilirubin 0.6 (0.2-1.3) mg/dL AST 41 H (14-36) IU/L ALT 40 H (<35) IU/L Alkaline Phosphatase 103 (38-126) U/L Total Protein 9.4 H (6.3-8.2) g/dL Albumin 5.1 H (3.5-5.0) g/dL Globulin 4.3 H (1.7-4.1) g/dL Albumin/Globulin Ratio 1.2 (1.0-2.8) Lipase 81 (23-300) U/L HCG, Quant mIU/mL 08/07/19 Range/Units 18:34 WBC (4.5-11.0) X10^3/uL RBC (4.0-5.2) X10^6/uL Hgb (12.0-16.0) g/dL Hct (36-46) % MCV (80-100) fL MCH (26-34) PG MCHC (30-36) % RDW (11.6-14.8) % Plt Count (150-400) X10^3/uL Neut % (Auto) (50-75) % Lymph % (Auto) (25-40) % [place] % (Auto) (3-14) % Eos % (Auto) (2-4) % Baso % (Auto) (0-2) % Neut # (Auto) (5290-7397) /uL Lymph # (Auto) (4904-1335) /uL [place] # (Auto) (0-900) /uL Eos # (Auto) (0-450) /uL Baso # (Auto) (0-100) /uL PT (10.1-12.7) SECONDS INR (0.9-1.3) APTT (26.4-36.2) SECONDS Sodium (137-145) mmol/L Potassium (3.4-5.1) mmol/L Chloride (98-107) mmol/L Carbon Dioxide (22-32) mmol/L BUN (7-17) mg/dL Creatinine (0.52-1.04) mg/dL Estimated GFR (>60) mL/min BUN/Creatinine Ratio (6-22) Glucose (70-100) mg/dL Calcium (8.4-10.2) mg/dL Total Bilirubin (0.2-1.3) mg/dL AST (14-36) IU/L ALT (<35) IU/L Alkaline Phosphatase (38-126) U/L Total Protein (6.3-8.2) g/dL Albumin (3.5-5.0) g/dL Globulin (1.7-4.1) g/dL Albumin/Globulin Ratio (1.0-2.8) Lipase (23-300) U/L HCG, Quant < 2.39 mIU/mL Point of Care Testing Test Results Negative Urine Dip Bedside Urine Glucose 100 mg/dl Bedside Urine Bilirubin - Negative Bedside Urine Ketone +++ 80 Urine Specific [place] 1.020 Bedside Urine Occult Blood - Negative Bedside Urine pH 6.0 Bedside Urine Protein +/- 15 Bedside Urine Urobilinogen - Negative Bedside Urine Nitrite - Negative Bedside Urine Leukocytes - Negative Esterase <Jose Marie DO - Last Filed: 08/08/19 17:46> Lab Data Labs: Lab Results 08/07/19 08/07/19 08/07/19 Range/Units 18:34 18:34 18:34 WBC 16.5 H (4.5-11.0) X10^3/uL RBC 5.04 (4.0-5.2) X10^6/uL Hgb 16.1 H (12.0-16.0) g/dL Hct 46.9 H (36-46) % MCV 93.0 (80-100) fL MCH 32.0 (26-34) PG MCHC 34.4 (30-36) % RDW 13.4 (11.6-14.8) % Plt Count 487 H (150-400) X10^3/uL Neut % (Auto) 83.5 H (50-75) % Lymph % (Auto) 11.2 L (25-40) % [place] % (Auto) 4.1 (3-14) % Eos % (Auto) 0.9 L (2-4) % Baso % (Auto) 0.3 (0-2) % Neut # (Auto) 02322 H (5119-8946) /uL Lymph # (Auto) 1800 (5309-0285) /uL [place] # (Auto) 700 (0-900) /uL Eos # (Auto) 100 (0-450) /uL Baso # (Auto) 0 (0-100) /uL PT 11.5 (10.1-12.7) SECONDS INR 1.0 (0.9-1.3) APTT 33 (26.4-36.2) SECONDS Sodium 138 (137-145) mmol/L Potassium 4.1 (3.4-5.1) mmol/L Chloride 102 (98-107) mmol/L Carbon Dioxide 22 (22-32) mmol/L BUN 6 L (7-17) mg/dL Creatinine 0.60 (0.52-1.04) mg/dL Estimated GFR > 60.0 (>60) mL/min BUN/Creatinine Ratio 10.0 (6-22) Glucose 211 H (70-100) mg/dL Calcium 10.3 H (8.4-10.2) mg/dL Total Bilirubin 0.6 (0.2-1.3) mg/dL AST 41 H (14-36) IU/L ALT 40 H (<35) IU/L Alkaline Phosphatase 103 (38-126) U/L Total Protein 9.4 H (6.3-8.2) g/dL Albumin 5.1 H (3.5-5.0) g/dL Globulin 4.3 H (1.7-4.1) g/dL Albumin/Globulin Ratio 1.2 (1.0-2.8) Lipase 81 (23-300) U/L HCG, Quant mIU/mL 08/07/19 Range/Units 18:34 WBC (4.5-11.0) X10^3/uL RBC (4.0-5.2) X10^6/uL Hgb (12.0-16.0) g/dL Hct (36-46) % MCV (80-100) fL MCH (26-34) PG MCHC (30-36) % RDW (11.6-14.8) % Plt Count (150-400) X10^3/uL Neut % (Auto) (50-75) % Lymph % (Auto) (25-40) % [place] % (Auto) (3-14) % Eos % (Auto) (2-4) % Baso % (Auto) (0-2) % Neut # (Auto) (0259-5284) /uL Lymph # (Auto) (4585-2819) /uL [place] # (Auto) (0-900) /uL Eos # (Auto) (0-450) /uL Baso # (Auto) (0-100) /uL PT (10.1-12.7) SECONDS INR (0.9-1.3) APTT (26.4-36.2) SECONDS Sodium (137-145) mmol/L Potassium (3.4-5.1) mmol/L Chloride (98-107) mmol/L Carbon Dioxide (22-32) mmol/L BUN (7-17) mg/dL Creatinine (0.52-1.04) mg/dL Estimated GFR (>60) mL/min BUN/Creatinine Ratio (6-22) Glucose (70-100) mg/dL Calcium (8.4-10.2) mg/dL Total Bilirubin (0.2-1.3) mg/dL AST (14-36) IU/L ALT (<35) IU/L Alkaline Phosphatase (38-126) U/L Total Protein (6.3-8.2) g/dL Albumin (3.5-5.0) g/dL Globulin (1.7-4.1) g/dL Albumin/Globulin Ratio (1.0-2.8) Lipase (23-300) U/L HCG, Quant < 2.39 mIU/mL Point of Care Testing Test Results Negative Urine Dip Bedside Urine Glucose 100 mg/dl Bedside Urine Bilirubin - Negative Bedside Urine Ketone +++ 80 Urine Specific [place] 1.020 Bedside Urine Occult Blood - Negative Bedside Urine pH 6.0 Bedside Urine Protein +/- 15 Bedside Urine Urobilinogen - Negative Bedside Urine Nitrite - Negative Bedside Urine Leukocytes - Negative Esterase Discharge Plan Departure Patient Disposition: Home Clinical Impression: Nausea & vomiting Qualifiers: Vomiting type: unspecified Vomiting Intractability: non-intractable Qualified Code(s): R11.2 - Nausea with vomiting, unspecified Discharge Date/Time: 08/08/19 00:00 Instructions: DI for Nausea -- Adult, DI for Vomiting -- Adult Activity Restrictions/Additional Instructions: As discussed, your CT came back with no acute findings. Please Please follow-up with primary care provider in the next few days Please come back to the emergency department for any acute concerns. We have sent you home with a prepack of Zofran. I sent prescriptions of Zofran and Compazine to [facility] for you to pick out hand tomorrow. I suggest a light diet, take small amounts of fluids frequently. Prescriptions: New ondansetron 4 mg tablet,disintegrating 4 mg PO Q6H PRN (Reason: nausea and vomiting) Qty: 20 RF: 0 prochlorperazine maleate [Compazine] 10 mg tablet 10 mg PO Q8H PRN (Reason: nausea and vomiting) Qty: 14 RF: 0 No Action norethindrone ac-eth estradiol [Loestrin 06/22 (21)] 1-20 mg-mcg tablet 1 tab PO DAILY Qty: 126 RF: 4 hydrocodone-acetaminophen 5-325 mg tablet 1 tab PO Q4H RF: 0 trazodone 50 mg tablet 100 mg PO BEDTIME PRN (Reason: Sleep) RF: 0 hydrocodone-acetaminophen [[place]] 7.5-325 mg tablet 1 tab PO Q4-6H PRN (Reason: pain) Qty: 20 RF: 0 citalopram 40 mg tablet 40 mg PO DAILY RF: 0 Referrals: Louie Ashraf MD [Primary Care Provider] - Stand Alone Forms: School Release Note <Jose Marie DO - Last Filed: 08/08/19 17:46> Sign Out Provider Sign Out Attestation: I was immediately available in the department for consultation. This documentation has been reviewed and I agree with assessment and plan. Supervised by Jose Marie DO
--- NOTE | 2019-08-07 20:30 | DI.CT.S_ITS ---
PROCEDURE: CT ABDOMEN PELVIS W CON INDICATIONS: abd pain TECHNIQUE: After the administration of intravenous contrast, 5 mm thick sections acquired from the diaphragm to the symphysis. 5 mm coronal and sagittal reformats were acquired. For radiation dose reduction, the following was used: automated exposure control, adjustment of mA and/or kV according to patient size. COMPARISON: [facility], CT, CT ABDOMEN PELVIS W CON, 02/13/2019, 22:02. [facility], CT, CT ABDOMEN PELVIS W CON, 02/27/2019, 11:38. FINDINGS: Image quality: Excellent. ABDOMEN: Lung bases: Trace airspace opacities are noted at the left lung base which are new when compared with the prior CT. Solid organs: Liver is normal in size and enhancement. Gallbladder is unremarkable. Biliary system is non dilated. Pancreas enhances normally. Spleen is normal in size and enhancement. No adrenal nodules. Kidneys demonstrate normal size and enhancement, without hydronephrosis. Peritoneum and bowel: The stomach and small bowel demonstrate normal wall thickness and caliber. There is mild circumferential wall thickening of the colon. No pericolonic fat stranding or free fluid is noted. No free fluid or air. Nodes and vessels: No retroperitoneal or mesenteric adenopathy by size criteria. Aorta and inferior vena cava are normal in size. Miscellaneous: No ventral hernias. PELVIS: Genitourinary: Bladder wall thickness is normal. 2 small posterior bladder diverticula are noted with calcified smart. These findings are unchanged. The uterus and left ovary are unremarkable. There is a 1.6 cm low-density right ovarian cyst which is within physiologic limits a premenopausal female. Miscellaneous: No inguinal hernias or adenopathy. Bones: No suspicious bony lesions. No vertebral body compression fractures. IMPRESSION: 1. Diffuse mild circumferential wall thickening of the colon without pericolonic fat stranding to suggest acute inflammatory changes. However, subacute colitis cannot be excluded. If clinically indicated, please consider gastroenterology consult for further workup to exclude early ulcerative colitis or Crohn's disease. Please note, this finding is somewhat discordant with overnight interpretation. This finding was discussed with Dr. Wynn at 7:03 AM on 08/08/2019 [place] time. 2. Normal appendix. No other acute intra-abdominal findings. 3. Trace left basilar airspace opacities. Differential considerations include early/mild pneumonia and aspiration. Dictated by: Janna Herrmann M.D. on 08/08/2019 at 7:12 Approved by: Janna Herrmann M.D. on 08/08/2019 at 7:27
[2019-08-07] MEDS: PROCHLORPERAZINE 10 MG/2 ML VIAL IV (20:42)
[2019-08-07] MEDS: diphenhydrAMINE 50 MG/ML VIAL IV (20:43)
[2019-08-07 21:13] VITALS: BP 157/79; PULSE 63; RESP 21; O2SAT 99
[2019-08-07 21:23] LABS: HCG Quantitative /Beta subunit < 2.39 mIU/mL
[2019-08-07] MEDS: LORazepam 2 MG/ML INJ 1 MG IV (21:37)
[2019-08-08] VITALS: BP 123/65; PULSE 81; RESP 14; O2SAT 98
[2019-08-08] MEDS: ONDANSETRON 4 MG ODT PREPACK 1 BOTTLE MISC (00:02)
== END 2019-08-08 | disposition home or self-care (01) ==
PROVIDERS: Emergency Medicine; Emergency Provider Nurse Practitioner Family; Family Provider Family Medicine; PCP Family Medicine
DX: R11.2 Nausea with vomiting, unspecified (principal); R10.9 Unspecified abdominal pain
CPT/HCPCS: 36415; 74177; 80053; 81003; 81025; 83690; 84702; 85025; 85610; 85730; 96361; 96374; 96375; 99284; J0780; J1200; J2060; J2405

== ENCOUNTER → 2021-04-04 15:01 | Outpatient (CLI) | payer OTHER, MEDICAID, SELFPAY ==
[2019-02-14 01:18] VITALS: BMI 29.2
--- NOTE | 2021-04-04 | DI.US.S_ITS ---
PROCEDURE: US OB <= 14 WEEKS FETUS INDICATIONS: THREATENED OUTSIDE/PRIOR DATING DATA: Last menstrual period (LMP): Uncertain. First dating scan (date and location): [facility]; April 04, 2021. Estimated date of delivery (ZULEIKA) from first dating scan: October 30, 2021. TECHNIQUE: Real-time scanning was performed of the fetus and maternal pelvic organs, with image documentation. Endovaginal scanning was also performed to better visualize the fetus and maternal ovaries. COMPARISON: None. FINDINGS: Embryo: The mean crown-rump length measures 3.3 cm, compatible with a 10 week, 1 day gestation. Heart rate: 165 beats per minute. Measurement variability in dating: +/- 4 weeks by LMP, +/- 7 days by mean sac diameter (use before 6 weeks gestation if crown-rump length not able to be measured), +/- 5 days by crown-rump length (up to 8 weeks 6 days gestation), +/- 7 days by crown-rump length (up to 13 weeks 6 days gestation). Maternal organs: Ovaries are not well seen. IMPRESSION: Live early single intrauterine gestation as detailed above Dictated by: Petr Allen M.D. on 04/04/2021 at 16:17 Approved by: Petr Allen M.D. on 04/04/2021 at 16:20
== END ==
PROVIDERS: Family Provider Family Medicine; PCP Family Medicine; Referring Provider Family Medicine; Visit Provider Family Medicine
DX: O20.0 Threatened abortion; Z3A.10 10 weeks gestation of pregnancy
CPT/HCPCS: 76801; 76817

== ENCOUNTER → 2021-05-24 09:59 | Outpatient (CLI) | payer OTHER, MEDICAID, SELFPAY ==
[2019-02-14 01:18] VITALS: BMI 29.2
[2021-05-24 13:48] LABS: Appearance Urine UA CLEAR; Bilirubin Urine UA NEGATIVE (NEGATIVE); Color Urine UA YELLOW; Glucose Urine UA NEGATIVE (Negative); Ketones Urine UA TRACE (NEGATIVE); Leukocyte Esterase Urine UA NEGATIVE (NEGATIVE); Nitrite Urine UA NEGATIVE (Negative); Occult Blood Urine UA NEGATIVE (Negative); Protein Urine UA NEGATIVE (Negative); Urobilinogen Urine UA 0.2 E.U./dL (0.2)
== END ==
PROVIDERS: Family Provider Family Medicine; PCP Family Medicine; Visit Provider Obstetrics & Gynecology
DX: Z34.01 Encounter for supervision of normal first pregnancy, first trimester (principal)
CPT/HCPCS: 81003; 87086

== ENCOUNTER → 2021-05-24 10:20 | Outpatient (CLI) | payer OTHER, MEDICAID, SELFPAY ==
[2019-02-14 01:18] VITALS: BMI 29.2
[2021-06-01 12:49] LABS: AFP Value 50.7 ng/mL (.); Gest Age on Col Date 17.6 weeks (.); Gestational Age EDD (.); Insulin Dep Diabetes No (.); OSBR Risk 1IN 3048 (.); Results Report (.); Test Results *Screen Negative* (.)
== END ==
PROVIDERS: Family Provider Family Medicine; PCP Family Medicine; Referring Provider Obstetrics & Gynecology; Visit Provider Obstetrics & Gynecology
DX: Z34.02 Encounter for supervision of normal first pregnancy, second trimester (principal); Z3A.17 17 weeks gestation of pregnancy
CPT/HCPCS: 36415; 81003; 82105; 87086

== ENCOUNTER → 2021-06-29 07:50 | Outpatient (CLI) | payer OTHER, MEDICAID, SELFPAY ==
[2019-02-14 01:18] VITALS: BMI 29.2
--- NOTE | 2021-06-29 07:51 | DI.US.S_ITS ---
PROCEDURE: US OB >= 14 WEEKS FETUS INDICATIONS: ANATOMY OUTSIDE/PRIOR DATING DATA: Last menstrual period (LMP): Uncertain. First dating scan (date and location): 04/04/2021. Estimated date of delivery (ZULEIKA) from first dating scan: 10/30/2021. The calculations are made using the prior reported ultrasound ZULEIKA of 10/30/2021. TECHNIQUE: Real-time scanning was performed of the fetus, with image documentation and biometric measurements. COMPARISON: [facility], OB <= 14 WEEKS FETUS, 04/04/2021, 15:13. [facility], US OB <= 14 WEEKS FETUS, 04/26/2021, 14:45. FINDINGS: General: A single living intrauterine gestation is present. Presentation: Transverse with head to maternal right. Placenta: Placental position is posterior , without previa. Amniotic fluid index: 20.8 cm, normal range is 5-24 cm. Single deepest vertical pocket is 6.1 cm. heart rate: 150 beats per minute. Maternal cervical canal: 4.4 cm long. Normal lower limit is 2.5 cm. biometrics: Biparietal diameter: 5.7 cm, 23 weeks 4 days Head circumference: 21.1 cm, 23 weeks 1 day Abdominal circumference: 18 cm, 22 weeks 6 days Femur length: 3.8 cm, 22 weeks 0 days Clinically estimated gestational age: 22 weeks 3 days Composite gestational age from present scan: 22 weeks 6 days Estimated weight and percentile: 519 g, 53rd percentile Anatomic survey: Neuro: Ventricles are non-dilated at less than 10 mm. Cisterna magna is normal at 3-11 mm. Cerebellum is normal in size and morphology. Nuchal skin fold: Normal at less than 6 mm between 14-21 weeks gestational age. Face: Nose and lips, facial profile are normal. Spine: No evidence for spina bifida. Heart: 4-chambered heart is present, with normal ventricular outflow tracts. Diaphragm: Diaphragm is intact. Stomach: Left-sided stomach is present. Kidneys: No hydronephrosis. Normal is less than 5 mm in 2nd trimester, less than 7 mm in 3rd trimester. Cord: 3-vessel cord has orthotopic insertion. Bladder: Normal in size. Extremities: All 4 extremities identified. IMPRESSION: 1. Single living intrauterine demonstrating appropriate interval growth with estimated weight at the 53rd percentile. 2. anatomic survey within normal limits. We strive to produce accurate, complete, and clear reports of imaging services. To assist us in improving patient care, this report was composed using standard report templates and voice recognition software. Therefore, it may contain abnormal punctuation, insertions and/or omissions. Occasional wrong-word or sound-alike substitutions may occur. Though we review the report and make efforts to correct it, we do recommend that the report be read carefully in proper context to recognize any text inaccuracies. Dictated by: Osito Canchola M.D. on 06/29/2021 at 11:36 Approved by: Osito Canchola M.D. on 06/29/2021 at 11:49
== END ==
PROVIDERS: Family Provider Family Medicine; PCP Family Medicine; Referring Provider Obstetrics & Gynecology; Visit Provider Obstetrics & Gynecology
DX: Z36.89 Encounter for other specified antenatal screening (principal); Z3A.22 22 weeks gestation of pregnancy
CPT/HCPCS: 76811

== ENCOUNTER 2021-07-10 17:47 | Emergency (ER) | payer OTHER, MEDICAID, SELFPAY ==
[2019-02-14 01:18] VITALS: BMI 29.2
[2021-07-10 17:56] VITALS: BP 142/82; PULSE 102; RESP 22; TEMP 36.2; O2SAT 98
[2021-07-10 18:49] LABS: Add Manual Diff / Slide Review NO; Basophils Absolute Auto 0 /uL (0-100); Basophils Percent Auto 0.5 % (0-2); Eosinophils Absolute Auto 0 /uL (0-450); Eosinophils Percent Auto 0.3 % (2-4); Hematocrit 39.2 % (36-46); Hemoglobin 13.6 g/dL (12.0-16.0); Lymphocytes Absolute Auto 1800 /uL (1100-4500); Lymphocytes Percent Auto 16.6 % (25-40); Mean Corpuscular HGB Conc 34.7 % (30-36); Mean Corpuscular Hemoglobin 30.7 PG (26-34); Mean Corpuscular Volume 88.6 fL (80-100); Monocytes Absolute Auto 700 /uL (0-900); Monocytes Percent Auto 6.6 % (3-14); Neutrophils Absolute Auto 8100 /uL (1500-7000); Platelet Count 241 X10^3/uL (150-400); Red Blood Cell Count 4.43 X10^6/uL (4.0-5.2); Red Cell Distribution Width 13.5 % (11.6-14.8); White Blood Cell Count 10.6 X10^3/uL (4.5-11.0)
[2021-07-10 18:51] LABS: Alanine Aminotransferase 13 IU/L (<35); Albumin 4.3 g/dL (3.5-5.0); Albumin Globulin Ratio 1.2 (1.0-2.8); Alkaline Phosphatase 75 U/L (38-126); Aspartate Aminotransferase 21 IU/L (14-36); BUN Creatinine Ratio 16.7 (6-22); Bilirubin Total 0.6 mg/dL (0.2-1.3); Blood Urea Nitrogen 7 mg/dL (7-17); Calcium 9.5 mg/dL (8.4-10.2); Carbon Dioxide 22 mmol/L (22-32); Chloride 105 mmol/L (98-107); Estimated Glomerular Filt Rate > 60.0 mL/min (>60); Globulin 3.6 g/dL (1.7-4.1); Glucose 85 mg/dL (70-100); HEMOLYSIS < 15 (0-50); Potassium 3.7 mmol/L (3.4-5.1); Sodium 135 mmol/L (137-145); Total Protein 7.9 g/dL (6.3-8.2)
[2021-07-10] MEDS: ONDANSETRON 4 MG/2 ML INJ IV (18:56)
[2021-07-10] MEDS: SODIUM CHLORIDE 0.9% 1,000 ML 1000 ML IV ×2 (18:56→20:02)
[2021-07-10 19:32] LABS: COVID19 -Nasal RAPID Negative (Negative)
--- NOTE | 2021-07-10 20:01 | ED_ITS ---
HPI - Nausea/Vomiting/Diarrhea General Chief complaint: Nausea/Vomiting/Diarrhea Stated complaint: Throwing Up Non Stop, 25 Wks Time Seen by Provider: 07/10/21 20:00 Source: patient Mode of arrival: Ambulatory History of Present Illness HPI Narrative: at 26 weeks with persistent emesis. She notes that she has had vomiting t hroughout her entire typically once or twice a day. Yesterday morning she woke up and has been continuing to vomit to the point where she is no longer able to keep liquids down getting feel a bit dizzy. She is noticing concentrated urine. She describes no fevers, cough, chills, no diarrhea no significant constipation. She is vaccinated for COVID. She does note that she had slept well the few nights previously and that may be why she was having more difficulty with her related vomiting. She has noted no blood in the emesis and is not having specific abdominal pain. She is noting active movement and no vaginal discharge Related Data Home Medications Medication Instructions Recorded Confirmed prenat.vits,patria,[id number] 1 tab PO DAILY 04/10/21 06/22/21 Previous Rx's Medication Instructions Recorded metoclopramide HCl 10 mg tablet 10 mg PO Q6H PRN #20 tab 07/10/21 (Reglan) Allergies Allergy/AdvReac Type Severity Reaction Status Date / Time No Known Drug Allergies Allergy Verified 06/22/21 14:48 Review of Systems Review of Systems Narrative: Remainder of complete review of systems is otherwise unremarkable except for that included in the HPI. 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, 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) current occupational exposures/hazards: No seatbelt use: always water heater temp set < 120 deg: Yes working smoke detector in home: Yes fire extinguisher in home: Yes carbon monox detector in home: Yes firearms in home: Yes firearms unloaded and locked: Yes do you feel safe at home: Yes Smoking Status: Never smoker alcohol intake: former well-balanced diet: daily or most days daily servings fruits/ve or more times/day caffeine: No Type(s) of exercise: walking frequency: 3-4 times per week Smoking Status: Never smoker alcohol intake frequency: 0-2 drinks per day Substance Use Type: marijuana Exam Initial Vital Signs Initial Vital Signs: Vital Signs Temperature 97.1 F L 07/10/21 17:56 Pulse Rate 102 H 07/10/21 17:56 Respiratory Rate 22 07/10/21 17:56 Blood Pressure 142/82 H 07/10/21 17:56 Pulse Oximetry 98 07/10/21 17:56 General: Healthy appearing, in no acute distress. Able to give a complete and coherent history. Well-nourished well-developed HEENT: Moist mucous membranes, normal sclera with reactive pupils, Respiratory: Lungs are clear to auscultation, no wheezing no rales no rhonchi. Full and symmetrical air movement Cardiac: Regular rate and rhythm no murmurs no bruits Abdomen: Soft, gravid, nontender, good bowel tones, no flank pain. heart tones appropriate per labor and delivery nursing staff Skin: Warm and dry, no rashes Neurologic: Grossly neurologically intact with no obvious asymmetries or abnormalities Extremities: No trauma, well perfused Psych: Cooperative, appropriate insight and affect Course Orders Ordered: ED Orders 07/10/21 18:26 Complete Blood Count AUTO DIFF Stat Comprehensive Metabolic Panel Stat 07/10/21 18:52 COVID19 -Nasal swab/Pre-Proc Stat 07/10/21 20:04 Urine Microscopic Stat Sodium Chloride (Normal Saline 0.9%) 1,000 mls @ 1,000 mls/hr IV BOLUS ONE Stop: 07/10/21 20:59 Last Admin: 07/10/21 20:02 Dose: 1,000 mls/hr Documented by: Discontinued Medications Sodium Chloride (Normal Saline 0.9%) 1,000 mls @ 1,000 mls/hr IV BOLUS ONE Stop: 07/10/21 19:33 Last Infusion: 07/10/21 19:54 Dose: 0 mls/hr Documented by: Admin: 07/10/21 18:56 Dose: 1,000 mls/hr Documented by: CLARISSE Metoclopramide HCl (Metoclopramide 10 Mg/2 Ml Inj) 10 mg IV NOW ONE Stop: 07/10/21 20:01 Last Admin: 07/10/21 20:06 Dose: 10 mg Documented by: Ondansetron HCl (Ondansetron 4 Mg/2 Ml Inj) 4 mg IV NOW ONE Stop: 07/10/21 18:35 Last Admin: 07/10/21 18:56 Dose: 4 mg Documented by: CLARISSE Vital Signs Vital signs: Vital Signs - 8 hr 07/10/21 17:56 Temperature 97.1 F L Pulse Rate 102 H Respiratory Rate 22 Blood Pressure 142/82 H Pulse Oximetry 98 MDM - Nausea/Vomiting/Diarrhea Lab Data Result diagrams: 07/10/21 18:26 07/10/21 18:26 Labs: Lab Results 07/10/21 07/10/21 07/10/21 Range/Units 18:26 18:26 18:52 WBC 10.6 (4.5-11.0) X10^3/uL RBC 4.43 (4.0-5.2) X10^6/uL Hgb 13.6 (12.0-16.0) g/dL Hct 39.2 (36-46) % MCV 88.6 (80-100) fL MCH 30.7 (26-34) PG MCHC 34.7 (30-36) % RDW 13.5 (11.6-14.8) % Plt Count 241 (150-400) X10^3/uL Neut % (Auto) 76.0 H (50-75) % Lymph % (Auto) 16.6 L (25-40) % [place] % (Auto) 6.6 (3-14) % Eos % (Auto) 0.3 L (2-4) % Baso % (Auto) 0.5 (0-2) % Neut # (Auto) 8100 H (1644-8141) /uL Lymph # (Auto) 1800 (5663-7274) /uL [place] # (Auto) 700 (0-900) /uL Eos # (Auto) 0 (0-450) /uL Baso # (Auto) 0 (0-100) /uL Sodium 135 L (137-145) mmol/L Potassium 3.7 (3.4-5.1) mmol/L Chloride 105 (98-107) mmol/L Carbon Dioxide 22 (22-32) mmol/L BUN 7 (7-17) mg/dL Creatinine 0.42 L (0.52-1.04) mg/dL Estimated GFR > 60.0 (>60) mL/min BUN/Creatinine Ratio 16.7 (6-22) Glucose 85 (70-100) mg/dL Calcium 9.5 (8.4-10.2) mg/dL Total Bilirubin 0.6 (0.2-1.3) mg/dL AST 21 (14-36) IU/L ALT 13 (<35) IU/L Alkaline Phosphatase 75 (38-126) U/L Total Protein 7.9 (6.3-8.2) g/dL Albumin 4.3 (3.5-5.0) g/dL Globulin 3.6 (1.7-4.1) g/dL Albumin/Globulin Ratio 1.2 (1.0-2.8) Urine RBC (0-5/HPF) Urine WBC (0-5/HPF) Ur Squamous Epith Cells (0-5/HPF) Ur Transition Epith Cell (0-5/HPF) Urine Bacteria (None) Hyaline Casts (None) Ur Culture Indicated? SARS-CoV-2 (PCR) Negative (Negative) 07/10/21 Range/Units 20:04 WBC (4.5-11.0) X10^3/uL RBC (4.0-5.2) X10^6/uL Hgb (12.0-16.0) g/dL Hct (36-46) % MCV (80-100) fL MCH (26-34) PG MCHC (30-36) % RDW (11.6-14.8) % Plt Count (150-400) X10^3/uL Neut % (Auto) (50-75) % Lymph % (Auto) (25-40) % [place] % (Auto) (3-14) % Eos % (Auto) (2-4) % Baso % (Auto) (0-2) % Neut # (Auto) (8445-2263) /uL Lymph # (Auto) (8048-9144) /uL [place] # (Auto) (0-900) /uL Eos # (Auto) (0-450) /uL Baso # (Auto) (0-100) /uL Sodium (137-145) mmol/L Potassium (3.4-5.1) mmol/L Chloride (98-107) mmol/L Carbon Dioxide (22-32) mmol/L BUN (7-17) mg/dL Creatinine (0.52-1.04) mg/dL Estimated GFR (>60) mL/min BUN/Creatinine Ratio (6-22) Glucose (70-100) mg/dL Calcium (8.4-10.2) mg/dL Total Bilirubin (0.2-1.3) mg/dL AST (14-36) IU/L ALT (<35) IU/L Alkaline Phosphatase (38-126) U/L Total Protein (6.3-8.2) g/dL Albumin (3.5-5.0) g/dL Globulin (1.7-4.1) g/dL Albumin/Globulin Ratio (1.0-2.8) Urine RBC 1-5/hpf (0-5/HPF) Urine WBC 1-5/hpf (0-5/HPF) Ur Squamous Epith Cells 1-5 /hpf (0-5/HPF) Ur Transition Epith Cell 1-5/hpf (0-5/HPF) Urine Bacteria Occasional (0-1) (None) Hyaline Casts 1-5/lpf (None) Ur Culture Indicated? Cult not indicated SARS-CoV-2 (PCR) (Negative) Urine Dip Bedside Urine Glucose Negative Bedside Urine Bilirubin - Negative Bedside Urine Ketone +++ 80 Urine Specific [place] 1.025 Bedside Urine Occult Blood - Negative Bedside Urine pH 6.0 Bedside Urine Protein +/- 15 Bedside Urine Urobilinogen - Negative Bedside Urine Nitrite - Negative Bedside Urine Leukocytes - Negative Esterase MDM Narrative Medical decision making narrative: 25-year-old woman with related vomiting and moderate dehydration. No signs of distress or maternal infection. Feeling significantly improved after 2 L of normal saline IV. She was given 4 mg of IV Zofran and 10 mg of Reglan. She found that the Reglan seemed like it was more effective for her. Give her a prescription for this to have available to her at home. At this time she is safe for home discharge Discharge Plan Departure Patient Disposition: Home Clinical Impression: Dehydration, Intractable vomiting Instructions: DI for Hyperemesis Gravidarum Activity Restrictions/Additional Instructions: Thank you for coming in today I am sorry that your having particularly pukey kind today. Your baby looks like it is growing well, your lab work is reassuring. I have given you 2 L of fluid as well as IV Zofran and IV Reglan. I have given you a prescription of Reglan, 10 mg that can be used up to every 6 hours to help with related nausea, the prescription was electronically transmitted to [facility] in [place]. Often after getting back to fully hydrated, it is much easier to continue to eat and drink so I encourage you to have a solid meal when you get home. If you have worsening symptoms or new findings, please return to the ER Prescriptions: New metoclopramide HCl [Reglan] 10 mg tablet 10 mg PO Q6H PRN (Reason: nausea and vomiting) Qty: 20 0RF No Action prenat.vits,patria,[id number] Tablet 1 tab PO DAILY 0RF Referrals: Louie Ashraf MD [Primary Care Provider] -
[2021-07-10] MEDS: METOCLOPRAMIDE 10 MG/2 ML INJ IV (20:06)
[2021-07-10 20:49] LABS: Bacteria Urine Occasional (0-1); Culture Indicated Urine Cult Not Indicated; Hyaline Casts Urine 1-5/LPF; RBC Urine 1-5/HPF (0-5/HPF); Squamous Epithelial Cell Urine 1-5 /HPF (0-5/HPF); Transitional Epi Cells Urine 1-5/HPF (0-5/HPF); WBC Urine 1-5/HPF (0-5/HPF)
== END 2021-07-10 21:25 | disposition home or self-care (01) ==
PROVIDERS: Emergency Provider Emergency Medicine; Family Provider Family Medicine; PCP Family Medicine
DX: O21.1 Hyperemesis gravidarum with metabolic disturbance (principal); Z3A.26 26 weeks gestation of pregnancy; Z20.822 Contact with and (suspected) exposure to COVID-19
CPT/HCPCS: 36415; 80053; 81003; 81015; 85025; 87635; 96374; 96375; 99284; C9803; J2405; J2765

== ENCOUNTER → 2021-08-14 11:19 | Outpatient (CLI) | payer OTHER, MEDICAID, SELFPAY ==
[2019-02-14 01:18] VITALS: BMI 29.2
[2021-08-14 14:01] LABS: Hemoglobin 13.5 g/dL (12.0-16.0)
[2021-08-14 15:00] LABS: Urine N gonorrhoeae NOT DETECTED
[2021-08-14 15:14] LABS: GTT (PREG) 1 Hour PP 50gm Dose 133 mg/dL (76-139)
[2021-08-14 15:54] LABS: Urine Chlamydia NOT DETECTED
== END ==
PROVIDERS: Family Provider Family Medicine; PCP Family Medicine; Referring Provider Obstetrics & Gynecology; Visit Provider Obstetrics & Gynecology
DX: Z34.02 Encounter for supervision of normal first pregnancy, second trimester (principal); Z3A.25 25 weeks gestation of pregnancy
CPT/HCPCS: 36415; 82950; 85014; 85018; 87491; 87591

== ENCOUNTER → 2021-09-28 17:02 | Outpatient (CLI) | payer OTHER, MEDICAID, SELFPAY ==
[2019-02-14 01:18] VITALS: BMI 29.2
[2021-09-29 13:25] LABS: Strep Grp B PCR NEG for Grp B Strep
== END ==
PROVIDERS: Family Provider Family Medicine; PCP Family Medicine; Visit Provider Obstetrics & Gynecology
DX: Z36.85 Encounter for antenatal screening for Streptococcus B (principal); Z3A.35 35 weeks gestation of pregnancy
CPT/HCPCS: 87653

== ENCOUNTER → 2021-10-06 13:34 | Outpatient (CLI) | payer OTHER, MEDICAID, SELFPAY ==
[2019-02-14 01:18] VITALS: BMI 29.2
[2021-10-06 14:31] LABS: COVID19 -Nasal RAPID Negative (Negative)
== END ==
PROVIDERS: Family Provider Family Medicine; PCP Family Medicine; Visit Provider Obstetrics & Gynecology
DX: Z01.812 Encounter for preprocedural laboratory examination (principal); Z20.822 Contact with and (suspected) exposure to COVID-19
CPT/HCPCS: 87635

== ENCOUNTER 2021-10-09 05:40 | Inpatient (IN) | payer OTHER, MEDICAID, SELFPAY ==
[2019-02-14 01:18] VITALS: BMI 29.2
[2021-10-09] MEDS: LACTATED RINGERS 1,000 ML 100 ML IV ×2 (06:30→07:00)
[2021-10-09 07:12] LABS: Add Manual Diff / Slide Review NO; Basophils Absolute Auto 100 /uL (0-100); Basophils Percent Auto 0.8 % (0-2); Eosinophils Absolute Auto 0 /uL (0-450); Eosinophils Percent Auto 0.4 % (2-4); Hematocrit 41.4 % (36-46); Lymphocytes Absolute Auto 2900 /uL (1100-4500); Lymphocytes Percent Auto 27.5 % (25-40); Mean Corpuscular HGB Conc 33.8 % (30-36); Mean Corpuscular Hemoglobin 30.4 PG (26-34); Mean Corpuscular Volume 89.9 fL (80-100); Monocytes Absolute Auto 700 /uL (0-900); Monocytes Percent Auto 6.4 % (3-14); Neutrophils Absolute Auto 6800 /uL (1500-7000); Neutrophils Percent Auto 64.9 % (50-75); Platelet Count 211 X10^3/uL (150-400); Red Cell Distribution Width 14.1 % (11.6-14.8); White Blood Cell Count 10.5 X10^3/uL (4.5-11.0)
--- NOTE | 2021-10-09 07:19 | SUR.OPER ---
Supine on Padded OR bed, head on pillow, safety belt at thigh, arms secured on padded arm boards at <90 degrees abduction. Bump under right buttock. Legs uncrossed with pillow under knees, gel pad to heels, tape over blanket to lower legs.
[2021-10-09] MEDS: CITRIC ACID/SODIUM CITRATE 15 ML SOLUTION 30 ML PO (07:37)
--- NOTE | 2021-10-09 07:41 | P.HPOB_ITS ---
OB HPI Date/Time Date of admission: 10/09/21 Date Patient Seen: 10/09/21 Time Patient Seen: 07:41 History of Present Condition Chief complaint: C Section ZULEIKA Calculator Estimated Delivery Date Method Current WG Current Estimate 10/30/21 Ultrasound #1 37w 0d Other Estimates 11/13/21 LMP (Uncertain) 35w 0d : 1 Para: 0 care: good care, initiated at week # (9), number of visits (10) and pounds weight gain (58) Dating criteria OB: LMP confirmed by 1st trimester US Ultrasounds: normal 1st trimester US and normal mid trimester US Obstetrical complications: other (Previous uterine surgery) Medical complications OB: none Indications Operative indications ( section): previous uterine surgery Preadmission Labs Last OB Lab Results: Blood Type Pending 10/09/21 06:30 10/09/21 Antibody Screen Pending 10/09/21 06:30 10/09/21 Hematocrit 41.4 % (36-46) 10/09/21 06:30 10/09/21 Hemoglobin 14.0 g/dL (12.0-16.0) 10/09/21 06:30 10/09/21 Glucose 1 Hour 133 mg/dL (76-139) 08/14/21 12:36 08/14/21 Group B Streptococcus (PCR) Neg for grp b strep 09/28/21 17:02 09/28/21 -: Chlamydia screen: negative, Gonorrhea screen: negative and Urine: negative -: PAP smear: Abnormal (Pos HR HPV) Genetic Screens: Quad screen: Normal External Labs -: Urine: negative Evaluation Evaluation Baseline heart rate: 135 Variability: Moderate (11-25) monitor accelerations: Present Monitor Decelerations: Absent PFSH Medical History Anxiety and depression (~2013) Frequent UTI (~1994) Mullerian anomaly of uterus (~2012) Ovarian cyst (~2012) Patient denies medical problems Surgical History Anesthesia H/O laparoscopy (~03/12/19) History of laparotomy (~2014) S/P removal of ovarian cyst (~03/12/19) Social History marital status: unmarried,living together household members: significant other and family caregiver/support person: Yes housing: house pets and animals: Yes (bunnies, ferrets, snakes, hedgehog, lizard, cows, roaster, chickens) education level: other (be[employer] school) 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, 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) current occupational exposures/hazards: No seatbelt use: always water heater temp set < 120 deg: Yes working smoke detector in home: Yes fire extinguisher in home: Yes carbon monox detector in home: Yes firearms in home: Yes firearms unloaded and locked: Yes do you feel safe at home: Yes Smoking Status: Never smoker alcohol intake: former well-balanced diet: daily or most days daily servings fruits/ve or more times/day caffeine: No Type(s) of exercise: walking frequency: 3-4 times per week Meds Home Medications and Allergies Home Medications Medication Instructions Recorded Confirmed Type prenat.vits,patria,[id number] 1 tab PO DAILY 04/10/21 10/06/21 History metoclopramide HCl 10 mg tablet 10 mg PO Q6H PRN #20 tab 07/10/21 10/06/21 Rx (Reglan) valacyclovir 500 mg tablet 500 mg PO DAILY #14 tab 09/28/21 10/06/21 Rx (Valtrex) Allergies Allergy/AdvReac Type Severity Reaction Status Date / Time No Known Drug Allergies Allergy Verified 10/06/21 13:30 OB Exam Narrative Exam Narrative: Generally: Patient is sitting up in bed, no acute distress Lungs: Clear to auscultation bilaterally Cardiovascular: Regular rate and rhythm Fundal height: 40 cm Estimated weight: 7 1/2 lb Extremities: 1+ edema, 1+ DTRs Objective Labs Result Diagrams: 10/09/21 06:30 Labs: Laboratory Results - last 24 hr 10/09/21 06:30 WBC 10.5 RBC 4.60 Hgb 14.0 Hct 41.4 MCV 89.9 MCH 30.4 MCHC 33.8 RDW 14.1 Plt Count 211 Neut % (Auto) 64.9 Lymph % (Auto) 27.5 [place] % (Auto) 6.4 Eos % (Auto) 0.4 L Baso % (Auto) 0.8 Neut # (Auto) 6800 Lymph # (Auto) 2900 [place] # (Auto) 700 Eos # (Auto) 0 Baso # (Auto) 100 Assessment and Plan Assessment and Plan Assessment and Plan narrative: Assessment: 25-year-old 1 para 0 at 37 weeks gestation with prior uterine surgery to remove the septum Plan: Primary low-transverse section The risks, benefits, and alternatives to the procedure were explained to the patient. The risks including bleeding, infection, injury to the bowel, bladder, or ureters. She understands these risks and agrees to proceed. A full par Q wa s held and consent form was signed. Time Spent with Patient Total time spent with greater than 50% in coordination of care (as documented) at patient's floor/unit and/or counseling patient:: 15-24 minutes
--- NOTE | 2021-10-09 07:46 | PM.PREOP ---
Pre-operative Note COVID-19 COVID-19 status: Negative Result date/Date tested (Pos, Neg/Pending): 10/06/21 Criteria for continued procedure: Delay expected to result in less-positive ultimate med/surg outcome and Non-surgical alternatives not available or appropriate per current SOC Interval Note History & Physical reviewed/Exam performed by Physician: Yes Changes to H&P: No H&P completed within 30 days and has changed as indicated here:: 10/09/21
[2021-10-09 07:59] LABS: COVID19 -Nasal RAPID Negative (Negative)
[2021-10-09] MEDS: CEFAZOLIN 2 GM/20 ML SYRINGE IV (08:26)
--- NOTE | 2021-10-09 08:59 | SUR.OPER ---
viable baby boy delivered at 0842. Intact placenta delivered and sent with cord blood to L&D. Cord sent with RT for PH testing.
[2021-10-09 09:30] VITALS: BP 133/79; PULSE 111; RESP 16; TEMP 35.9; O2SAT 100
[2021-10-09 09:35] VITALS: BP 123/73; PULSE 102; RESP 16; O2SAT 98
[2021-10-09 09:40] VITALS: BP 135/73; PULSE 105; RESP 16; TEMP 36.7; O2SAT 100
--- NOTE | 2021-10-09 09:42 | PM.OBCS.1 ---
Operative Date/Time/Diagnoses Date of procedure: 10/09/21 Time of procedure: 09:42 Pre-op diagnosis: 37 weeks gestation Previous uterine surgery to remove a septum Post-op diagnosis: same Procedure & Clinicians Procedure: Primary low transverse C section Same procedure as scheduled: Yes Indications: 37 weeks gestation Prior uterine surgery to remove a septum Surgeon: Natalie Rich Click Yes if Unassisted: No Machine Programmer: Mercy Allan Reason for Machine Programmer: The respiratory therapist assistant was necessary in this obese patient in entering the abdomen. Upon entry into the peritoneum there were found to be adhesions from the prior surgery and very little space to work in. The respiratory therapist assistant was necessary to create extra space and for delivery of the . On closure she retracted and clipped suture as well as closed the contralateral fascia. Anesthesia Type: Spinal (with Duramorph) Operative Notes Findings: Live male infant in the SH[facility] presentation Significant omental to anterior abdominal wall adhesions Bladder to uterine adhesions Closure Type: primary Specimen(s): cord blood, cord pH and placenta Intraoperative meds administered: Duramorph, Ketorolac and Pitocin Applied: Catheter Estimated Blood Loss (mL): 500 Blood products transfused: none Procedure in detail: The patient was taken to the operating room where she was placed in the seated position. Spinal anesthesia was administered. She was then placed in the dorsal supine position with a leftward tilt. She was prepped and draped in the usual sterile fashion. A timeout was performed. After spinal analgesia was found to be adequate, a Pfannenstiel skin incision was made 2 fingerbreadths above the pubic symphysis and carried through to the underlying layer fascia. The fascia was nicked in the midline, and the incision extended bilaterally with the [place] scissors. The superior aspect of the fascial incision was grasped with a Ted clamps, elevated, and the underlying rectus muscles dissected off sharply and bluntly. Attention was then turned to the inferior aspect of this incision which in a similar fashion was grasped with a Custer clamps, elevated, and the underlying rectus muscles dissected off sharply and bluntly. The rectus muscles were in the midline. The peritoneum was identified, grasped between 2 hemostats, and entered sharply with the Metzenbaum scissors. This incision was extended superiorly and inferiorly with good visualization of the bladder. A large Pablito was placed. The vesicouterine peritoneum was identified, grasped with the pickup, and entered sharply with the Metzenbaum scissors. This incision was extended bilaterally, and the bladder flap was created digitally. The Pablito was replaced. The lower uterine segment was incised in a transverse fashion with the scalpel. Upon entering the amniotic sac there was a small amount of meconium-stained amniotic fluid. The infant's head was delivered with vacuum assistance. The nose and mouth were suctioned with bulb suction. The remainder of the body delivered without difficulty. The cord was double clamped and cut. The infant was handed off to waiting RN and RT. The placenta was delivered manually. The uterus was cleared of all clots and debris. The cervix was found to be dilated 2 cm. The uterine incision was repaired with #1 chromic in a running interlocking fashion, and a second layer the same suture was used for an imbricating layer. Hemostasis was achieved. The tubes and ovaries were examined and were found to be normal. The gutters were cleared of all clots and debris. The bladder flap was reapproximated using 2-0 Vicryl in a running fashion. The parietal peritoneum was closed using 2-0 Vicryl in a running fashion. The fascia was reapproximated using 0 Vicryl in a running fashion. The The The subcutaneous layer was copiously irrigated with warm normal saline. 6 simple interrupted sutures of 3-0 Vicryl were placed to reapproximate the subcutaneous layer. The skin was closed with 4-0 undyed Vicryl in a subcuticular fashion. Steri-Strips were placed. An Aquacel dressing was placed. The uterus was expressed of a small amount of old blood. Sponge, lap, and instrument counts were correct x-2. The patient tolerated the procedure well, and was taken to PACU in stable condition. Complications: none [place] Baby 1: Gender: Male Presentation: vertex Position: Left Occiput Anterior Placental Delivery Description: Expressed Cord Vessel Description: 3 Vessels score (1 min): 7 score (5 min): 8 weight: 7 lb 4 oz Post-operative Condition: stable Disposition: PACU Aftercare: routine postop
[2021-10-09 09:55] VITALS: BP 132/78; PULSE 102; RESP 16; TEMP 36.6; O2SAT 98
[2021-10-09] MEDS: ONDANSETRON 4 MG/2 ML INJ IV (13:17)
[2021-10-09] MEDS: KETOROLAC 30 MG/ML VIAL IV ×2 (15:00→21:08)
[2021-10-10] MEDS: KETOROLAC 30 MG/ML VIAL IV (03:10)
[2021-10-10 04:50] LABS: Hematocrit 32.1 % (36-46); Hemoglobin 10.8 g/dL (12.0-16.0)
[2021-10-10] MEDS: OXYCODONE IR 5 MG TABLET PO ×2 (06:28→10:29)
[2021-10-10] MEDS: ACETAMINOPHEN 325 MG TABLET 650 MG PO ×3 (06:29→18:23)
[2021-10-10] MEDS: IBUPROFEN 600 MG TABLET PO ×3 (09:05→20:54)
[2021-10-10] MEDS: DOCUSATE 100 MG CAPSULE 200 MG PO (09:06)
[2021-10-10] MEDS: PRENATAL VIT,CALC/IRON/FOLIC 1 TABLET 1 TAB PO (09:06)
[2021-10-10] MEDS: ONDANSETRON 4 MG/2 ML INJ IV (10:48)
[2021-10-10] MEDS: OXYCODONE IR 10 MG TABLET PO ×3 (14:17→22:49)
--- NOTE | 2021-10-10 21:29 | P.PNOB_ITS ---
Subjective - OB Subjective Patient comments: no complaints, pain well controlled, tolerating diet and flatus present baby status: doing well and nursing well [place] feeding status: exclusively breast feeding Date Patient Seen: 10/10/21 Time Patient Seen: 13:00 Interval history: POD #1 s/p primary c section due to previous uterine surgery Exam Vital Signs (past 8 hours): Oxygen Delivery Method Room Air Narrative Exam Narrative: Generally: Pt sitting up in bed, holding infant, in no acute distress Fundus: Firm U-1 Incision: C/D/I with Aquacel dressing Ext: 1+ edema, neg Cinthya's Objective Labs Result Diagrams: 10/10/21 04:35 Labs: Laboratory Results - last 24 hr 10/10/21 04:35 Hgb 10.8 L Hct 32.1 L Assessment & Plan Plan day: 1 plan OB: routine postop care Comments: Anticipate d/c tomorrow Time Spent With Patient Time: Total time spent is greater than 50% in coordination of care (as documented) at patient's floor/unit and/or counseling patient: Time with patient: 15-24 minutes
[2021-10-11] MEDS: ACETAMINOPHEN 325 MG TABLET 650 MG PO ×2 (00:48→06:56)
[2021-10-11] MEDS: OXYCODONE IR 10 MG TABLET PO ×3 (02:51→11:25)
[2021-10-11] MEDS: IBUPROFEN 600 MG TABLET PO ×2 (02:52→09:39)
--- NOTE | 2021-10-11 07:30 | P.DS_ITS ---
Discharge Providers Provider Date of admission: 10/09/21 05:40 Discharge Date: 10/11/21 Primary care physician: Louie Ashraf MD Consults: 10/09/21 12:33 Consult to [employer] L[employer] Routine Comment: Discharge provider: Torey Hawk MD Summary Hospital Course Date Patient Seen: 10/11/21 Time Patient Seen: 07:31 Diagnoses: Intrauterine , Hernandez, 38 +0 weeks gestation Prior uterine surgery necessitating delivery via primary Primary section, delivered Hospital Course: The patient was admitted on 10/09/2021 for primary section at 38 weeks gestation due to prior uterine surgery. Patient underwent an uneventful primary delivery by Dr. Jazmin Rich and the details of the procedure well summarized on her operative note of that date. Following delivery the patient has done extremely well with prompt return of bowel and bladder function, she is ambulating independently, is tolerating regular diet, and her pain is well tolerated with oral medications. First morning postop hemoglobin and hematocrit were consistent with observed operative losses. Patient will be discharged at this time in an afebrile normotensive condition to home with medications to include oxycodone 10 mg tab p.o. q.4 #20, and vitamins. Prior to discharge she was counseled by Dr. Rich regarding precautionary symptoms, limitations of activity, medications, and plans for follow-up which will be in 1 week for an incision check. Peripartum Data Infant Delivery Method: Section Laceration Description: None Episiotomy description: None complications: none Discharge Diagnosis (1) Bicornuate uterus: Status: Acute Problem Details: Repaired (2) At risk for difficulty: Status: Acute (3) delivery, delivered, current hospitalization: Status: Acute Status at Discharge Cognitive/behavioral status at discharge: oriented Functional status at discharge: independent ambulation Overall status at discharge: patient is progressing back to baseline Time Spent with Patient Time attestation: Total time spent providing and/or coordinating discharge services: Time spent: Less than 30 minutes Objective Labs Result Diagrams: 10/10/21 04:35 Exam Vital Signs (past 8 hours): Oxygen Delivery Method Room Air Const General: cooperative and comfortable Orientation: alert and oriented x3 HENMT Head: normal to inspection Eyes General: appearance normal, both eyes and all related structures Neck Neck: normal visual inspection Resp Effort & Inspection: normal respiratory effort and able to speak in complete sentences Auscultation: clear to auscultation bilaterally Cardio Rate: regular rate Rhythm: regular rhythm Heart Sounds: S1 normal, S2 normal and no murmurs GI Inspection: normal to inspection, incision (Dressing clean and dry) and large pannus Palpation: soft, no hepatosplenomegaly, mass (Firm, minimally tender fundus, U - 4) and tender (Diffuse,mild postsurgical tenderness) Auscultation: normal bowel sounds Discharge Plan Discharge Plan Patient Disposition: Home Provider Discharge Comment: Call with fever, chills, redness or drainage around incision or bleeding vaginally more than a pad in an hour Tylenol 650mg every 6 hours as needed Ibuprofen 600mg every 6 hours as needed Stool softner as needed Discharge orders & Medications Prescriptions: New oxycodone 10 mg tablet 10 mg PO Q4H PRN (Reason: pain) Qty: 20 0RF Continued prenat.vits,patria,[id number] Tablet 1 tab PO DAILY 0RF Discontinued valacyclovir [Valtrex] 500 mg tablet 500 mg PO DAILY Qty: 14 0RF metoclopramide HCl [Reglan] 10 mg tablet 10 mg PO Q6H PRN (Reason: nausea and vomiting) Qty: 20 0RF Follow up/Referrals: Natalie Rich MD [Physician] - 1 Week (Patient already has 1 and 6 wk visits scheduled) Diet/Activity/Treatments Diet: Regular Activity: No heavy lifting Other treatments: Tylenol and/or Ibuprofen for pain Skin/Wound/Dressing Care Report to your healthcare provider any signs of infection, such as:: chills, fever, increased pain, unusual drainage and unusual redness Dressing: Do not remove Visit Report/Discharge Packet Instructions: DI for , DI for and Nipple Soreness, DI for Prescription Opioid Use Discharge Data Primary Care Provider: Louie Ashraf
[2021-10-11] MEDS: PRENATAL VIT,CALC/IRON/FOLIC 1 TABLET 1 TAB PO (09:25)
[2021-10-11] MEDS: DOCUSATE 100 MG CAPSULE 200 MG PO (09:25)
[2021-10-11 11:08] VITALS: BP 132/78; PULSE 102; RESP 16; TEMP 36.6
== END 2021-10-11 13:50 | disposition home or self-care (01) | DRG 540 ==
PROVIDERS: Admitting Provider Obstetrics & Gynecology; Family Provider Family Medicine; PCP Family Medicine; Referring Provider Obstetrics & Gynecology; Visit Provider Obstetrics & Gynecology
PROC: 10D00Z1 Extraction of Products of Conception, Low, Open Approach (ICD-10-PCS; CPT 59514; principal; 2021-10-09 07:45)
DX: O34.29 Maternal care due to uterine scar from other previous surgery (principal); O34.03 Maternal care for unspecified congenital malformation of uterus, third trimester; Z3A.37 37 weeks gestation of pregnancy; Z37.0 Single live birth; Q51.3 Bicornate uterus
CPT/HCPCS: 36415; 59050; 59514; 85014; 85018; 85025; 86850; 86900; 86901; 87635; C9803; J0690; J1100; J1885; J2274; J2405; J2590; J2765

== ENCOUNTER → 2023-12-10 12:03 | Outpatient (CLI) | payer OTHER, MEDICAID, SELFPAY ==
[2023-12-09 12:58] VITALS: BMI 29.2
--- NOTE | 2023-12-10 12:05 | DI.CT.S_ITS ---
PROCEDURE: CT ABDOMEN PELVIS W CON INDICATIONS: DIFFUSE ABD PAIN TECHNIQUE: After the administration of intravenous contrast, axial sections acquired from the lung bases to the pubic symphysis. Coronal and sagittal reformats were performed. For radiation dose reduction, the following was used: automated exposure control, adjustment of mA and/or kV according to patient size. COMPARISON: [facility], CT, CT ABDOMEN PELVIS W CON, 08/07/2019, 22:15. FINDINGS: Image quality: Diagnostic. Lower Chest: No significant findings. ABDOMEN: Liver: No solid mass. Liver is enlarged with diffuse steatosis measuring 19.8 cm. Gallbladder: No radiopaque gallstones or wall thickening. Biliary ducts: No biliary dilation. Pancreas: No ductal dilation. Spleen: Size is within normal limits. Adrenal Glands: No adrenal nodules. Kidneys and Ureters: No hydronephrosis. No solid mass. No complex renal cystic lesion which requires follow up. Stomach and Bowel: There is an overall appearance of incomplete gastric distention. However, luminal narrowing/thickened appearance appears most prominent similar compared to prior exam within the distal transverse and descending colon. No appreciable pericolonic inflammatory change. No free fluid. Peritoneum: No abnormal intraperitoneal fluid. No free air. Ventral Wall: No significant ventral hernia. Abdominal Nodes: No retroperitoneal or mesenteric adenopathy by size criteria. Vessels: Aorta and inferior vena cava are normal in size. PELVIS: Pelvic Organs: Unremarkable. Bladder: No bladder wall thickening, accounting for underdistention. Pelvic Nodes: No enlarged lymph nodes. Miscellaneous: No inguinal hernias are seen. Bones: No aggressive osseous abnormality. IMPRESSION: Circumferential wall thickening without stranding in the transverse and descending colon within appearance suggestive of inflammatory bowel disease. No significant pericolonic inflammatory change is identified. Dictated by: Ellie Valles M.D. on 12/10/2023 at 22:32 Approved by: Ellie Valles M.D. on 12/10/2023 at 22:34
== END ==
PROVIDERS: Family Provider Family Medicine; PCP Family Medicine; Referring Provider Family Medicine; Visit Provider Family Medicine
DX: K76.0 Fatty (change of) liver, not elsewhere classified (principal); R10.84 Generalized abdominal pain
CPT/HCPCS: 74177; Q9967